=== PATIENT | female | born 1930 | race Caucasian/White ===

== ENCOUNTER → 2016-05-21 | Outpatient (CLI) | payer MEDICARE, BC ==
[2016-05-21 09:57] LABS: ALKALINE PHOSPHATASE 58 U/L (45-117); ALT (GPT) 19 U/L (10-53); ANION GAP 9 MEQ/L (5-15); AST (GOT) 19 U/L (15-37); BICARBONATE 30.5 MEQ/L (21.0-32.0); BLOOD UREA NITROGEN 22 MG/DL (7-18); CHLORIDE 97 MEQ/L (98-107); GLOMERULAR FILTRATION RATE 61 ML/MIN (>89); GLUCOSE,FASTING 97 MG/DL (74-99); HDL CHOLESTEROL 77.6 MG/DL (40.0-60.0); LDL CHOLESTEROL 96 MG/DL (0-99); SODIUM (NA) 136 MEQ/L (136-145); TOTAL BILIRUBIN ADULT 0.7 MG/DL (0.2-1.0)
== END ==
LOC: PLAB 07:14
PROVIDERS: ATTEND Family Medicine
DX: E78.5 Hyperlipidemia, unspecified (principal); R73.01 Impaired fasting glucose; I10 Essential (primary) hypertension
CPT/HCPCS: 36415; 80053; 80061

== ENCOUNTER → 2016-11-26 | Outpatient (CLI) | payer MEDICARE, BC ==
[2016-11-26 09:48] LABS: ANION GAP 9 MEQ/L (5-15); AST (GOT) 18 U/L (15-37); BICARBONATE 28.8 MEQ/L (21.0-32.0); BLOOD UREA NITROGEN 14 MG/DL (7-18); CHLORIDE 97 MEQ/L (98-107); GLOMERULAR FILTRATION RATE 76 ML/MIN (>89); GLUCOSE,FASTING 97 MG/DL (74-99); POTASSIUM 3.4 MEQ/L (3.5-5.1); SODIUM (NA) 135 MEQ/L (136-145)
[2016-11-26 09:55] LABS: ALKALINE PHOSPHATASE 58 U/L (45-117); ALT (GPT) 24 U/L (10-53); HDL CHOLESTEROL 74.3 MG/DL (40.0-60.0); LDL CHOLESTEROL 108 MG/DL (0-99); TOTAL BILIRUBIN ADULT 0.6 MG/DL (0.2-1.0)
== END ==
LOC: PLAB 07:48
PROVIDERS: ATTEND Family Medicine
DX: E78.5 Hyperlipidemia, unspecified (principal); I11.9 Hypertensive heart disease without heart failure
CPT/HCPCS: 36415; 80053; 80061

== ENCOUNTER → 2017-02-21 | Outpatient (CLI) | payer MEDICARE, BC ==
[2017-02-21 10:15] LABS: BICARBONATE 30.2 MEQ/L (21.0-32.0); POTASSIUM 3.8 MEQ/L (3.5-5.1)
[2017-02-21 10:17] LABS: INDIRECT BILIRUBIN 0.5 MG/DL (0.0-0.8); TOTAL BILIRUBIN ADULT 0.7 MG/DL (0.2-1.0)
== END ==
LOC: PLAB 07:17
PROVIDERS: ATTEND Family Medicine
DX: R14.2 Eructation (principal)
CPT/HCPCS: 36415; 80048; 80076

== ENCOUNTER 2017-06-17 10:18 | Inpatient (IN) | payer MEDICARE, BC ==
[~2017-06-17] VITALS: Ht 147.3 cm; Wt 72.4 kg
[2017-06-17] VITALS (8 sets, daily range): BP systolic 136–161; BP diastolic 60–71; PULSE 66–77; RESP 16–20; TEMP 96.6–97.8; O2SAT 95–99
[2017-06-17] MEDS ORDERED: EZET10 PO (10:47)
[2017-06-17] MEDS ORDERED: OMEP20TA93 PO (10:47)
[2017-06-17] MEDS ORDERED: LISI10TA3 PO (10:47)
[2017-06-17] MEDS ORDERED: SODIUM CHLORIDE 0.9% FLUSH 10 ML FLUSH IV FLUSH PRN (11:15)
[2017-06-17] MEDS ORDERED: SODIUM CHLORID 0.9% 500 ML INJ 500 ML IV ONE (11:15)
[2017-06-17 11:27] LABS: AUTOMATED NEUTROPHIL # 3.9 TH/MM3 (1.8-7.7); BASOPHIL # 0.1 TH/MM3 (0-0.2); BASOPHIL % 1.7 % (0.0-2.0); EOSINOPHIL % 0.5 % (0.0-4.0); HEMATOCRIT 32.6 % (35.0-46.0); LYMPH % 20.2 % (9.0-44.0); LYMPHOCYTE # 1.1 TH/MM3 (1.0-4.8); MEAN CELL VOLUME 88.3 FL (80.0-100.0); MEAN CORPUSCULAR HEMOGLOBIN 29.7 PG (27.0-34.0); MEAN CORPUSCULAR HGB CONC 33.7 % (32.0-36.0); MEAN PLATELET VOLUME 7.1 FL (7.0-11.0); MONO % 9.8 % (0.0-8.0); MONOCYTE # 0.6 TH/MM3 (0-0.9); NEUT % 67.8 % (16.0-70.0); PLATELET COUNT 225 TH/MM3 (150-450); RED CELL DISTRIBUTION WIDTH 12.4 % (11.6-17.2); WHITE BLOOD COUNT 5.7 TH/MM3 (4.0-11.0)
[2017-06-17 11:28] LABS: BILIRUBIN, URINE NEG (NEG); BLOOD, URINE NEG (NEG); GLUCOSE,URINE NEG (NEG); KETONE, URINE NEG (NEG); NITRITE,URINE NEG (NEG); URINE LEUKOCYTE ESTERASE NEG (NEG)
[2017-06-17 11:33] LABS: URINE COLOR YELLOW (YELLW/STRAW)
[2017-06-17 11:34] LABS: SQUAMOUS EPITHELIAL CELL URINE > 8 /hpf (0-5)
[2017-06-17 11:35] LABS: AMORPHOUS SEDIMENT, URINE MOD; TRANSITIONAL EPI CELLS, URINE 0-5 /hpf
--- NOTE | 2017-06-17 11:42 | PD ---
HPI Chief Complaint: Dizziness Time Seen by Provider: 11:07 Travel History International Travel<30 days: No Contact w/Intl Traveler<30days: No Traveled to known affect area: No History of Present Illness HPI Patient is an 86-year-old female presents emergency department for evaluation of some nausea without vomiting diarrhea for the past few days gradually worsening. Patient states she thought she had a urinary tract infection and had some Cipro left over from an old urinary tract infection and took some home , afterwards she started having diarrhea. She told her primary care physician about this and she had stool studies ordered as an outpatient which she has not given yet, she came here today because her daughter thinks that she is getting fairly dehydrated and wanted her to have some blood work. Patient states that she has a history of some GI problems and esophageal dilation and her installations inspector also wants to find out if she has proper absorption in her GI tract and is ordered the test which they cannot expound on further. She states her diarrhea is brown, no blood no blackness and no mucus. She states that yesterday she felt somewhat weak and lowered herself to the ground. No tremors no seizure activity. She is not taking any Lasix or hydrochlorothiazide. States symptoms are moderate, gradually worsening, associated sinus symptoms and contacts as above. PFSH Past Medical History Cardiovascular Problems: Yes (htn on meds) High Cholesterol: Yes GERD: Yes Hypertension: Yes ?: Not Past Surgical History Cholecystectomy: Yes Genitourinary Surgery: Yes (bladder sling/mesh) Hysterectomy: Yes (partial) Social History Alcohol Use: No Tobacco Use: No Substance Use: No Allergies-Medications (Allergen,Severity, Reaction): Coded Allergies: No Known Allergies (Unverified , 06/17/17) Reported Meds & Prescriptions Reported Meds & Active Scripts Active Reported Zetia (Ezetimibe) 10 Mg Tab 10 Mg PO DAILY Lisinopril 10 Mg Tab 10 Mg PO DAILY Omeprazole 20 Mg Tab 20 Mg PO DAILY Review of Systems Except as stated in HPI: all other systems reviewed are Neg Physical Exam Narrative GENERAL: Well-developed well-nourished, healthy appearance, quite pleasant in no obvious distress peer SKIN: Focused skin assessment warm/dry. HEAD: Atraumatic. Normocephalic. EYES: Pupils equal and round. No scleral icterus. No injection or drainage. ENT: No nasal bleeding or discharge. Mucous membranes pink and moist. NECK: Trachea midline. No JVD. CARDIOVASCULAR: Regular rate and rhythm. No murmur appreciated. RESPIRATORY: No accessory muscle use. Clear to auscultation. Breath sounds equal bilaterally. GASTROINTESTINAL: Abdomen soft, non-tender, nondistended. Hepatic and splenic margins not palpable. There is perhaps a small amount of suprapubic fullness, no discrete masses felt. No rebound or percussive tenderness MUSCULOSKELETAL: No obvious deformities. No clubbing. No cyanosis. No edema. NEUROLOGICAL: Awake and alert. Cranial nerves II through XII grossly intact and nonfocal, 5 out of 5 strength in all 4 extremities, no tremors, no seizure activity PSYCHIATRIC: Appropriate mood and affect; insight and judgment normal. Data Data Last Documented VS Vital Signs Date Time Temp Pulse Resp B/P (MAP) Pulse Ox O2 Delivery O2 Flow Rate FiO2 06/17/17 13:01 75 16 145/60 (88) 98 Room Air 06/17/17 10:25 97.4 Orders Orders Complete Blood Count With Diff (06/17/17 11:07) Comprehensive Metabolic Panel (06/17/17 11:07) Lipase (06/17/17 11:07) Urinalysis - C+S If Indicated (06/17/17 11:07) Iv Access Insert/Monitor (06/17/17 11:07) Ecg Monitoring (06/17/17 11:07) Oximetry (06/17/17 11:07) Sodium Chloride 0.9% Flush (Ns Flush) (06/17/17 11:15) C Diff Toxin Pcr (06/17/17 11:07) Sodium Chlorid 0.9% 500 Ml Inj (Ns 500 M (06/17/17 11:15) Chest, Single Ap (06/17/17 ) Ct Abd/Pel W/O Iv Contrast (06/17/17 ) Electrocardiogram (06/17/17 ) Troponin I (06/17/17 11:29) Admit Order (Ed Use Only) (06/17/17 ) Labs Laboratory Tests Test 06/17/17 11:18 White Blood Count 5.7 TH/MM3 Red Blood Count 3.70 MIL/MM3 Hemoglobin 11.0 GM/DL Hematocrit 32.6 % Mean Corpuscular Volume 88.3 FL Mean Corpuscular Hemoglobin 29.7 PG Mean Corpuscular Hemoglobin Concent 33.7 % Red Cell Distribution Width 12.4 % Platelet Count 225 TH/MM3 Mean Platelet Volume 7.1 FL Neutrophils (%) (Auto) 67.8 % Lymphocytes (%) (Auto) 20.2 % Monocytes (%) (Auto) 9.8 % Eosinophils (%) (Auto) 0.5 % Basophils (%) (Auto) 1.7 % Neutrophils # (Auto) 3.9 TH/MM3 Lymphocytes # (Auto) 1.1 TH/MM3 Monocytes # (Auto) 0.6 TH/MM3 Eosinophils # (Auto) 0.0 TH/MM3 Basophils # (Auto) 0.1 TH/MM3 CBC Comment DIFF FINAL Differential Comment Urine Collection Type CLEAN CATCH Urine Color YELLOW Urine Turbidity H Urine pH 6.0 Urine Specific [place] 1.008 Urine Protein NEG mg/dL Urine Glucose (UA) NEG mg/dL Urine Ketones NEG mg/dL Urine Occult Blood NEG Urine Nitrite NEG Urine Bilirubin NEG Urine Leukocyte Esterase NEG Urine Squamous Epithelial Cells > 8 /hpf Urine Transitional Epithelial Cells 0-5 /hpf Urine Amorphous Sediment MOD Microscopic Urinalysis Comment CULT NOT INDICATED Blood Urea Nitrogen 12 MG/DL Creatinine 0.88 MG/DL Random Glucose 102 MG/DL Total Protein 6.8 GM/DL Albumin 3.4 GM/DL Calcium Level 8.5 MG/DL Alkaline Phosphatase 64 U/L Aspartate Amino Transf (AST/SGOT) 45 U/L Alanine Aminotransferase (ALT/SGPT) 26 U/L Total Bilirubin 0.9 MG/DL Sodium Level 120 MEQ/L Potassium Level 3.8 MEQ/L Chloride Level 83 MEQ/L Carbon Dioxide Level 27.7 MEQ/L Anion Gap 9 MEQ/L Estimat Glomerular Filtration Rate 61 ML/MIN Troponin I LESS THAN 0.02 NG/ML Lipase 101 U/L [facility] Medical Decision Making Medical Screen Exam Complete: Yes Emergency Medical Condition: Yes Differential Diagnosis Dehydration, diarrhea, C. difficile, urinary tract infection, acute abdomen unlikely, electrolyte abnormality Narrative Course Patient room to the emergency department t, she appears well in no obvious distress, her lab work was significant for hyponatremia with a sodium of 120 which I think would explain her generalized weakness, likely source of her hyponatremia is hypovolemia secondary to diarrhea, she was started slowly on resuscitation with normal saline 500 cc bolus, she appears comfortable, CT of her abdomen was obtained secondary to the suprapubic fullness and shows no acute abnormality, chest x-ray negative, discuss results with the patient with recommendations for admission secondary to hyponatremia and weakness, she is agreeable. Patient was discussed with Dr. Corbin for admission. Patient does not have urinary tract infection, C. difficile study has been ordered and the patient think she can give a sample now. Diagnosis Primary Impression: Hyponatremia Additional Impressions: Generalized weakness Diarrhea Admitting Information Admitting Physician Requests: Admit Condition: Stable Edward Leyva MD Jun 17, 2017 11:42
[2017-06-17 11:56] LABS: ALBUMIN 3.4 GM/DL (3.4-5.0); ALT (GPT) 26 U/L (10-53); AST (GOT) 45 U/L (15-37); BICARBONATE 27.7 MEQ/L (21.0-32.0); BLOOD UREA NITROGEN 12 MG/DL (7-18); CALCIUM 8.5 MG/DL (8.5-10.1); CHLORIDE 83 MEQ/L (98-107); GLUCOSE,RANDOM 102 MG/DL (74-106)
[2017-06-17 11:57] LABS: CREATININE 0.88 MG/DL (0.50-1.00); GLOMERULAR FILTRATION RATE 61 ML/MIN (>89)
--- NOTE | 2017-06-17 12:09 | RADRPT ---
EXAM DATE/TIME: 06/17/2017 11:30 [facility] COMPARISON: No previous studies available for comparison. INDICATIONS : Short of breath, epigastric pain. MEDICAL HISTORY : Hypertension. Hypercholesterolemia. Gastroesophageal reflux disease. SURGICAL HISTORY : Cholecystectomy. Hysterectomy. Bladder sling. ENCOUNTER: Initial ACUITY: 1 day PAIN SCORE: 6/10 LOCATION: chest FINDINGS: A single view of the chest demonstrates the lungs to be symmetrically aerated without evidence of mas s, infiltrate or effusion. The cardiomediastinal contours are unremarkable. Degenerative changes and scoliosis of the thoraco-lumbar spine are noted. CONCLUSION: No acute cardiopulmonary disease. Degenerative changes and scoliosis of the thoracolu mbar spine. Edward Allen MD on June 17, 2017 at 12:06 Board Certified Radiologist. This report was verified electronically.
[2017-06-17 12:10] LABS: SODIUM (NA) 120 MEQ/L (136-145)
[2017-06-17 12:11] LABS: ALKALINE PHOSPHATASE 64 U/L (45-117); TOTAL BILIRUBIN ADULT 0.9 MG/DL (0.2-1.0); TOTAL PROTEIN 6.8 GM/DL (6.4-8.2)
--- NOTE | 2017-06-17 12:30 | RADRPT ---
EXAM DATE/TIME: 06/17/2017 11:40 [facility] COMPARISON: No previous studies available for comparison. INDICATIONS : Lower abdominal pressure, diarrhea and dizziness. ORAL CONTRAST: No oral contrast ingested. RADIATION DOSE: 9.73 CTDIvol (mGy) MEDICAL HISTORY : Hypertension. Gastroesophageal reflux disease. SURGICAL HISTORY : Cholecystectomy. Hysterectomy.Bladder sling. ENCOUNTER: Initial ACUITY: 4 - 6 days PAIN SCALE: 2/10 LOCATION: Bilateral lower quadrant TECHNIQUE: Volumetric scanning of the abdomen and pelvis was performed. Using automated exposure control and ad justment of the mA and/or kV according to patient size, radiation dose was kept as low as reasonably achievable to obtain optimal diagnostic quality images. DICOM format image data is available electro nically for review and comparison. FINDINGS: The lung base is are clear. The liver, spleen unremarkable Calcification mid body the pancreas without mass or evidence of pancreatitis Common duct 8 mm in the head of the pancreas Ligament appear normal There no renal calculi identified There is no adenopathy There is no free fluid or free air The pelvis there are no inflammatory changes. There is no inguinal adenopathy. There is no hernia. CONCLUSION: Negative, I do not see an etiology for the patient's abdominal pain. . Common duct measures 8 mm in the pancreas. Gallbladder surgically absent. Nadeem Pabon MD FACR on June 17, 2017 at 11:47 Board Certified Radiologist. This report was verified electronically.
--- NOTE | 2017-06-17 15:32 | HHI.HP ---
[facility] Jovan Sierra MD Admission Diagnosis Hyponatremia, Generalized weakness, Diarrhea Diagnoses: (1) Hyponatremia (2) Diarrhea (3) Generalized weakness Chief Complaint: Fatigue Travel History International Travel<30 Days: No Contact w/Intl Traveler <30 Da: No Traveled to Known Affected Are: No History of Present Illness This is an 86-year-old female patient with a known medical history of hyperlipidemia, hypertension and GERD who presented to the ED with several weeks of fatigue. Patient states that on Tuesday she went to her doctor and was prescribed ciprofloxacin for bladder infection and after three days of taking the antibiotic she developed diarrhea. Patient states that she had roughly 3 bouts of diarrhea and then it resolved. Today she was standing in the kitchen against the sink and all of a sudden her legs gave out on her and she fell to the ground. Denies hitting her head or losing consciousness. Patient states at that time she called her son who came to her home and brought her into her PCP this morning who told her to come to the ED for evaluation. Patient denies any recent fever, chills, headache, sore throat, shortness of breath, abdominal pain, vomiting or dysuria. Does admit to poor appetite. Diarrhea has resolved. Review of Systems Constitutional: COMPLAINS OF: Fatigue, DENIES: Fever Eyes: DENIES: Blurred vision, Diplopia Respiratory: DENIES: Cough, Sputum production, Shortness of breath Cardiovascular: DENIES: Chest pain, Palpitations Gastrointestinal: COMPLAINS OF: Diarrhea, Nausea, Vomiting, DENIES: Abdominal pain, Black stools, Bloody stools, Constipation Integumentary: DENIES: Abnormal pigmentation Hematologic/lymphatic: DENIES: Bruising Immunologic/allergic: DENIES: Eczema Neurologic: COMPLAINS OF: Localized weakness, DENIES: Abnormal gait Psychiatric: DENIES: Anxiety Except as stated in HPI: all other systems reviewed are Neg Past Family Social History Past Medical History Hyperlipidemia Hypertension GERD Past Surgical History Cholecystectomy Bladder sling/mesh placement Partial hysterectomy Right knee replacement Reported Medications Active Reported Zetia (Ezetimibe) 10 Mg Tab 10 Mg PO DAILY Lisinopril 10 Mg Tab 10 Mg PO DAILY Omeprazole 20 Mg Tab 20 Mg PO DAILY Allergies: Coded Allergies: No Known Allergies (Unverified , 06/17/17) Active Ordered Medications Current Medications Medications (Trade) Dose Ordered Sig/Heron Route Start Time Stop Time Status Last Admin (NS Flush) 2 ml UNSCH PRN IV FLUSH 06/17/17 11:15 (Zetia) 10 mg DAILY PO 06/18/17 09:00 (Prinivil) 10 mg DAILY PO 06/18/17 09:00 (Protonix) 20 mg DAILY PO 06/18/17 09:00 Family History Family history reviewed and noncontributory. Social History Denies any illicit drug use, alcohol or tobacco use. Physical Exam Vital Signs Vital Signs Date Time Temp Pulse Resp B/P (MAP) Pulse Ox O2 Delivery O2 Flow Rate FiO2 06/17/17 14:10 96.6 70 17 136/63 (87) 99 06/17/17 14:05 06/17/17 13:01 75 16 145/60 (88) 98 Room Air 06/17/17 11:59 66 20 141/64 (89) 97 Room Air 06/17/17 11:25 99 Room Air 06/17/17 10:25 97.4 73 16 161/71 (101) 96 Physical Exam GENERAL: Well-nourished, well-developed patient in NAD. SKIN: Warm and dry. No rash. HEAD: Normocephalic. Atraumatic. EYES: Pupils equal and round. No scleral icterus. No injection or drainage. ENT: No nasal bleeding or discharge. Mucous membranes pink and moist. NECK: Supple. Trachea midline. CARDIOVASCULAR: Regular rate and rhythm. S1, S2 noted. No murmur appreciated. RESPIRATORY: No accessory muscle use. Clear to auscultation. Breath sounds equal bilaterally. GASTROINTESTINAL: Abdomen soft, non-tender, nondistended. Normoactive bowel sounds x4. MUSCULOSKELETAL: No obvious deformities. Extremities without clubbing, cyanosis , or edema. NEUROLOGICAL: Awake and alert. No obvious cranial nerve deficits. Motor grossly within normal limits. 5/5 muscle strength in bilateral upper and lower extremities. Normal speech. PSYCHIATRIC: Appropriate mood and affect; insight and judgment normal. Laboratory Laboratory Tests Test 06/17/17 11:18 White Blood Count 5.7 Red Blood Count 3.70 Hemoglobin 11.0 Hematocrit 32.6 Mean Corpuscular Volume 88.3 Mean Corpuscular Hemoglobin 29.7 Mean Corpuscular Hemoglobin Concent 33.7 Red Cell Distribution Width 12.4 Platelet Count 225 Mean Platelet Volume 7.1 Neutrophils (%) (Auto) 67.8 Lymphocytes (%) (Auto) 20.2 Monocytes (%) (Auto) 9.8 Eosinophils (%) (Auto) 0.5 Basophils (%) (Auto) 1.7 Neutrophils # (Auto) 3.9 Lymphocytes # (Auto) 1.1 Monocytes # (Auto) 0.6 Eosinophils # (Auto) 0.0 Basophils # (Auto) 0.1 CBC Comment DIFF FINAL Differential Comment Urine Collection Type CLEAN CATCH Urine Color YELLOW Urine Turbidity H Urine pH 6.0 Urine Specific [place] 1.008 Urine Protein NEG Urine Glucose (UA) NEG Urine Ketones NEG Urine Occult Blood NEG Urine Nitrite NEG Urine Bilirubin NEG Urine Leukocyte Esterase NEG Urine Squamous Epithelial Cells > 8 Urine Transitional Epithelial Cells 0-5 Urine Amorphous Sediment MOD Microscopic Urinalysis Comment CULT NOT INDICATED Blood Urea Nitrogen 12 Creatinine 0.88 Random Glucose 102 Total Protein 6.8 Albumin 3.4 Calcium Level 8.5 Alkaline Phosphatase 64 Aspartate Amino Transf (AST/SGOT) 45 Alanine Aminotransferase (ALT/SGPT) 26 Total Bilirubin 0.9 Sodium Level 120 Potassium Level 3.8 Chloride Level 83 Carbon Dioxide Level 27.7 Anion Gap 9 Estimat Glomerular Filtration Rate 61 Troponin I LESS THAN 0.02 Lipase 101 Result Diagram: 06/17/17 1118 06/17/17 1118 Imaging Last Impressions Chest X-Ray 06/17/17 0000 Signed Impressions: Service Date/Time: Saturday, June 17, 2017 11:30 - CONCLUSION: No acute cardiopulmonary disease. Degenerative changes and scoliosis of the thoracolumbar spine. Edward Allen MD Abdomen/Pelvis CT 06/17/17 0000 Signed Impressions: Service Date/Time: Saturday, June 17, 2017 11:40 - CONCLUSION: Negative, I do not see an etiology for the patient's abdominal pain. . Common duct measures 8 mm in the pancreas. Gallbladder surgically absent. Nadeem Pabon MD FACR Septic Shock Reassessment Septic shock perfusion: reassessment completed Caprini VTE Risk Assessment Caprini VTE Risk Assessment: Mod/High Risk (score >= 2) Caprini Risk Assessment Model Point Value = 1 Point Value = 2 Point Value = 3 Point Value = 5 Age 41-60 Minor surgery BMI > 25 kg/m2 Swollen legs Varicose veins or History of unexplained or recurrent spontaneous Oral contraceptives or hormone replacement Sepsis (< 1 month) Serious lung disease, including pneumonia (< 1 month) Abnormal pulmonary function Acute myocardial infarction Congestive heart failure (< 1 month) History of inflammatory bowel disease Medical patient at bed rest Age 61-74 Arthroscopic surgery Major open surgery (> 45 min) Laparoscopic surgery (> 45 min) Malignancy Confined to bed (> 72 hours) Immobilizing plaster cast Central venous access Age >= 75 History of VTE Family history of VTE Factor V Leiden Prothrombin [id number] Lupus anticoagulant Anticardiolipin antibodies Elevated serum homocysteine Heparin-induced thrombocytopenia Other congenital or acquired thrombophilia Stroke (< 1 month) Elective arthroplasty Hip, pelvis, or leg fracture Acute spinal cord injury (< 1 month) Prophylaxis Regimen Total Risk Factor Score Risk Level Prophylaxis Regimen 0-1 Low Early ambulation 2 Moderate Order ONE of the following: *Sequential Compression Device (SCD) *Heparin 5000 units SQ BID 3-4 Higher Order ONE of the following medications: *Heparin 5000 units SQ TID *Enoxaparin/Lovenox 40 mg SQ daily (WT < 150 kg, CrCl > 30 mL/min) *Enoxaparin/Lovenox 30 mg SQ daily (WT < 150 kg, CrCl > 10-29 mL/min) *Enoxaparin/Lovenox 30 mg SQ BID (WT < 150 kg, CrCl > 30 mL/min) AND/OR *Sequential Compression Device (SCD) 5 or more Highest Order ONE of the following medications: *Heparin 5000 units SQ TID (Preferred with Epidurals) *Enoxaparin/Lovenox 40 mg SQ daily (WT < 150 kg, CrCl > 30 mL/min) *Enoxaparin/Lovenox 30 mg SQ daily (WT < 150 kg, CrCl > 10-29 mL/min) *Enoxaparin/Lovenox 30 mg SQ BID (WT < 150 kg, CrCl > 30 mL/min) AND *Sequential Compression Device (SCD) Assessment and Plan Problem List: (1) Hyponatremia ICD Code: E87.1 - Hypo-osmolality and hyponatremia Status: Acute Plan: Suspect secondary to diarrhea - With presence of weakness and fatigue. Na 120 on presentation. Chest x-ray reviewed showing no acute cardiopulmonary disease. Degenerative changes and scoliosis of the thoracolumbar spine. Abdominal/pelvis CT negative. C. difficile ordered for recent antibiotic use. Although diarrhea has resolved per patient. Follow. Status post 1 L NS bolus in the ED. Will start fluid restriction. Urine osmolality and 24-hour sodium ordered. Follow. The reviewed showing normal sinus rhythm with controlled heart rate, no ST changes to indicate ischemia. Continue cardiac telemetry, monitor for any arrhythmias. (2) Hypertension ICD Code: I10 - Essential (primary) hypertension Plan: Continue home medication. Monitor BP trends. (3) Hyperlipidemia ICD Code: E78.5 - Hyperlipidemia, unspecified Plan: Continue home medication. Physician Certification 2 Midnight Certification Type: Admission for Inpatient Services Order for Inpatient Services The services are ordered in accordance with Medicare regulations or non- Medicare payer requirements, as applicable. In the case of services not specified as inpatient-only, they are appropriately provided as inpatient services in accordance with the 2-midnight benchmark. Estimated LOS (days): 3 3 days is the estimated time the patient will need to remain in the hospital, assuming treatment plan goals are met and no additional complications. Post-Hospital Plan: Home Kayla Horton Jun 17, 2017 15:32
[2017-06-17 21:52] LABS: OSMOLALITY,URINE 164 MOSM/KG (300-1300)
[2017-06-17 22:32] LABS: SODIUM,RANDOM URINE 44 MEQ/L
[2017-06-18] VITALS (7 sets, daily range): BP systolic 111–136; BP diastolic 56–62; PULSE 63–71; RESP 16–20; TEMP 96–98.7; O2SAT 96–99
[2017-06-18 07:52] LABS: AUTOMATED NEUTROPHIL # 2.9 TH/MM3 (1.8-7.7); BASOPHIL % 0.6 % (0.0-2.0); CALCIUM 8.2 MG/DL (8.5-10.1); EOSINOPHIL # 0.1 TH/MM3 (0-0.4); HEMATOCRIT 31.6 % (35.0-46.0); HEMOGLOBIN 10.4 GM/DL (11.6-15.3); LYMPH % 27.4 % (9.0-44.0); LYMPHOCYTE # 1.4 TH/MM3 (1.0-4.8); MEAN CELL VOLUME 89.6 FL (80.0-100.0); MEAN CORPUSCULAR HEMOGLOBIN 29.6 PG (27.0-34.0); MEAN PLATELET VOLUME 7.8 FL (7.0-11.0); MONO % 13.4 % (0.0-8.0); MONOCYTE # 0.7 TH/MM3 (0-0.9); NEUT % 56.6 % (16.0-70.0); PLATELET COUNT 205 TH/MM3 (150-450); RED BLOOD COUNT 3.53 MIL/MM3 (4.00-5.30); RED CELL DISTRIBUTION WIDTH 12.7 % (11.6-17.2); WHITE BLOOD COUNT 5.1 TH/MM3 (4.0-11.0)
[2017-06-18 07:53] LABS: BICARBONATE 29.5 MEQ/L (21.0-32.0)
[2017-06-18 07:56] LABS: CREATININE 0.69 MG/DL (0.50-1.00)
[2017-06-18] MEDS ORDERED: POTASSIUM CHLORIDE 10 MEQ CONTROLLED RELEASE TAB PO ONE (08:00)
[2017-06-18] MEDS: LISINOPRIL 10 MG TAB PO SCH (08:47)
[2017-06-18] MEDS: PANTOPRAZOLE SOD 20 MG DELAYED RELEASE TAB PO SCH (08:47)
[2017-06-18] MEDS: EZETIMIBE 10 MG TAB PO SCH (08:48)
[2017-06-18] MEDS ORDERED: SODIUM CHLORID 0.9% 500 ML INJ 500 ML IV ONE (09:00)
--- NOTE | 2017-06-18 11:02 | HHI.PR ---
Subjective Remarks Follow-up hyponatremia. Patient seen and examined, lying in bed comfortably. States she slept well. Denies any nausea or vomiting. Tolerating PO intake well. Has been ambulating to the bathroom with no dizziness or weakness. Sodium has improved slightly with fluid restriction. Patient does still seem to be mildly dehydrated, will give small slow IV bolus today. Continue to monitor response. Follow-up Labs this afternoon. Objective Vitals Vital Signs Date Time Temp Pulse Resp B/P (MAP) Pulse Ox O2 Delivery O2 Flow Rate FiO2 06/18/17 08:00 96.9 63 20 119/58 (78) 98 06/18/17 04:00 96.5 66 18 117/57 (77) 96 06/18/17 00:34 97.8 70 16 136/60 (85) 96 06/17/17 22:18 77 06/17/17 20:00 97.8 72 18 138/66 (90) 95 06/17/17 16:20 18 06/17/17 14:10 96.6 70 17 136/63 (87) 99 06/17/17 14:05 06/17/17 13:01 75 16 145/60 (88) 98 Room Air 06/17/17 11:59 66 20 141/64 (89) 97 Room Air 06/17/17 11:25 99 Room Air I/O 06/17/17 06/17/17 06/17/17 06/18/17 06/18/17 06/18/17 07:00 15:00 23:00 07:00 15:00 23:00 Intake Total 500 ml 240 ml 340 ml Output Total 450 ml Balance 500 ml 240 ml -110 ml Intake Oral 240 ml 340 ml IV Total 500 ml Output Urine Total 450 ml # Voids 1 0 Result Diagram: 06/18/17 0625 06/18/17 0625 Imaging Last Impressions Chest X-Ray 06/17/17 0000 Signed Impressions: Service Date/Time: Saturday, June 17, 2017 11:30 - CONCLUSION: No acute cardiopulmonary disease. Degenerative changes and scoliosis of the thoracolumbar spine. Edward Allen MD Abdomen/Pelvis CT 06/17/17 0000 Signed Impressions: Service Date/Time: Saturday, June 17, 2017 11:40 - CONCLUSION: Negative, I do not see an etiology for the patient's abdominal pain. . Common duct measures 8 mm in the pancreas. Gallbladder surgically absent. Nadeem Pabon MD FACR Objective Remarks GENERAL: Well-nourished, well-developed patient in NAD. SKIN: Warm and dry. No rash. HEAD: Normocephalic. Atraumatic. EYES: Pupils equal and round. No scleral icterus. No injection or drainage. ENT: No nasal bleeding or discharge. Mucous membranes pink and moist. NECK: Supple. Trachea midline. CARDIOVASCULAR: Regular rate and rhythm. S1, S2 noted. No murmur appreciated. RESPIRATORY: No accessory muscle use. Clear to auscultation. Breath sounds equal bilaterally. GASTROINTESTINAL: Abdomen soft, non-tender, nondistended. Normoactive bowel sounds x4. MUSCULOSKELETAL: No obvious deformities. Extremities without clubbing, cyanosis , or edema. NEUROLOGICAL: Awake and alert. No obvious cranial nerve deficits. Motor grossly within normal limits. 5/5 muscle strength in bilateral upper and lower extremities. Normal speech. PSYCHIATRIC: Appropriate mood and affect; insight and judgment normal. A/P Problem List: (1) Hyponatremia ICD Code: E87.1 - Hypo-osmolality and hyponatremia Status: Acute Plan: Suspect secondary to diarrhea - With presence of weakness and fatigue. Diarrhea resolved. Na 120 on presentation. Now 125. Chest x-ray reviewed showing no acute cardiopulmonary disease. Degenerative changes and scoliosis of the thoracolumbar spine. Abdominal/pelvis CT negative. C. difficile pending. Status post five hundred mL NS bolus in the ED. Will give an additional 500 ml bolus today. Recheck labs at 1500 today. Follow. Urine osmolality 164, random urine sodium 44. The reviewed showing normal sinus rhythm with controlled heart rate, no ST changes to indicate ischemia. Continue cardiac telemetry, monitor for any arrhythmias. (2) Hypertension ICD Code: I10 - Essential (primary) hypertension Plan: Continue home medication. Monitor BP trends. (3) Hyperlipidemia ICD Code: E78.5 - Hyperlipidemia, unspecified Plan: Continue home medication. GI prophylaxis: Protonix. DVT prophylaxis: SCDs. Discharge Planning Also discharge today if labs are stable. Most likely tomorrow morning. Kayla Horton Jun 18, 2017 11:02
[2017-06-18 15:43] LABS: CALCIUM 8.6 MG/DL (8.5-10.1)
[2017-06-18 15:44] LABS: BICARBONATE 29.9 MEQ/L (21.0-32.0)
[2017-06-18] MEDS: SODIUM CHLORIDE 1 GRAM TAB PO SCH (21:34)
[2017-06-18 22:20] LABS: CREATININE 0.89 MG/DL (0.50-1.00)
[2017-06-19 00:05] VITALS: BP 106/50; PULSE 72; RESP 16; TEMP 98; O2SAT 97
--- NOTE | 2017-06-19 00:23 | EKG ---
Date Performed: 06/17/2017 Time Performed: 11:56:09 PTAGE: 86 years EKG: Sinus rhythm MODERATE ST DEPRESSION ABNORMAL ECG PREVIOUS TRACING : 03/13/2001 08.59 Compared to prior tracing, ST depressions now noted DOCTOR: Joaquin Vera Interpretating Date/Time 06/19/2017 00:23:03
[2017-06-19 04:59] VITALS: BP 110/63; PULSE 79; RESP 18; TEMP 97.8; O2SAT 98
[2017-06-19 08:00] VITALS: BP 140/65; PULSE 69; RESP 20; TEMP 97.1; O2SAT 97
[2017-06-19] MEDS: SODIUM CHLORIDE 1 GRAM TAB PO SCH (08:22)
[2017-06-19] MEDS: LISINOPRIL 10 MG TAB PO SCH (08:23)
[2017-06-19] MEDS: PANTOPRAZOLE SOD 20 MG DELAYED RELEASE TAB PO SCH (08:23)
[2017-06-19] MEDS: EZETIMIBE 10 MG TAB PO SCH (08:23)
[2017-06-19 10:23] LABS: SODIUM 24 HOUR URINE 23 MEQ/24HR (80-180)
[2017-06-19 10:44] LABS: CALCIUM 8.1 MG/DL (8.5-10.1)
[2017-06-19 10:45] LABS: BICARBONATE 26.4 MEQ/L (21.0-32.0)
[2017-06-19 10:48] LABS: CREATININE 0.64 MG/DL (0.50-1.00)
--- NOTE | 2017-06-19 11:15 | HHI.DCPOC ---
Discharge Care Plan Diagnosis: (1) Hyponatremia (2) Generalized weakness (3) Diarrhea (4) Hyperlipidemia (5) Hypertension Goals to Promote Your Health * To prevent worsening of your condition and complications * To maintain your health at the optimal level Directions to Meet Your Goals Take your medications as prescribed Follow your dietary instruction Follow activity as directed Keep your appointments as scheduled Take your immunizations and boosters as scheduled If your symptoms worsen call your PCP, if no PCP go to Urgent Care Center or Emergency Room Smoking is Dangerous to Your Health. Avoid second hand smoke Call the 24-hour hour crisis hotline for domestic abuse at Kayla Horton Jun 19, 2017 11:15
--- NOTE | 2017-06-19 11:15 | HHI.DS ---
Discharge Summary Admission Date Jun 17, 2017 at 13:08 Discharge Date: Jun 19, 2017 Admitting Diagnosis Hyponatremia, Generalized weakness, Diarrhea (1) Hyponatremia ICD Code: E87.1 - Hypo-osmolality and hyponatremia Status: Acute (2) Hypertension ICD Code: I10 - Essential (primary) hypertension (3) Hyperlipidemia ICD Code: E78.5 - Hyperlipidemia, unspecified Procedures . Brief History - From Admission This is an 86-year-old female patient with a known medical history of hyperlipidemia, hypertension and GERD who presented to the ED with several weeks of fatigue. Patient states that on Tuesday she went to her doctor and was prescribed ciprofloxacin for bladder infection and after three days of taking the antibiotic she developed diarrhea. Patient states that she had roughly 3 bouts of diarrhea and then it resolved. Today she was standing in the kitchen against the sink and all of a sudden her legs gave out on her and she fell to the ground. Denies hitting her head or losing consciousness. Patient states at that time she called her son who came to her home and brought her into her PCP this morning who told her to come to the ED for evaluation. Patient denies any recent fever, chills, headache, sore throat, shortness of breath, abdominal pain, vomiting or dysuria. Does admit to poor appetite. Diarrhea has resolved. CBC/BMP: 06/18/17 0625 06/19/17 0610 Significant Findings Laboratory Tests Test 06/17/17 11:18 06/17/17 16:05 06/17/17 18:15 06/18/17 06:25 Red Blood Count 3.70 MIL/MM3 (4.00-5.30) 3.53 MIL/MM3 (4.00-5.30) Hemoglobin 11.0 GM/DL (11.6-15.3) 10.4 GM/DL (11.6-15.3) Hematocrit 32.6 % (35.0-46.0) 31.6 % (35.0-46.0) Monocytes (%) (Auto) 9.8 % (0.0-8.0) 13.4 % (0.0-8.0) Urine Squamous Epithelial Cells > 8 /hpf (0-5) Aspartate Amino Transf (AST/SGOT) 45 U/L (15-37) Sodium Level 120 MEQ/L (136-145) 124 MEQ/L (136-145) 125 MEQ/L (136-145) Chloride Level 83 MEQ/L (98-107) 88 MEQ/L (98-107) Estimat Glomerular Filtration Rate 61 ML/MIN (>89) 81 ML/MIN (>89) Troponin I LESS THAN 0.02 NG/ML Urine Osmolality 164 MOSM/KG (300-1300) Calcium Level 8.2 MG/DL (8.5-10.1) Potassium Level 3.1 MEQ/L (3.5-5.1) Test 06/18/17 09:50 06/18/17 15:00 06/18/17 22:20 06/19/17 06:10 Sodium Level 125 MEQ/L (136-145) 131 MEQ/L (136-145) Chloride Level 88 MEQ/L (98-107) 94 MEQ/L (98-107) Estimat Glomerular Filtration Rate 60 ML/MIN (>89) 88 ML/MIN (>89) Urine Sodium 24 Hour 23 MEQ/24HR (80-180) Calcium Level 8.1 MG/DL (8.5-10.1) Imaging Last Impressions Chest X-Ray 06/17/17 0000 Signed Impressions: Service Date/Time: Saturday, June 17, 2017 11:30 - CONCLUSION: No acute cardiopulmonary disease. Degenerative changes and scoliosis of the thoracolumbar spine. Edward Allen MD Abdomen/Pelvis CT 06/17/17 0000 Signed Impressions: Service Date/Time: Saturday, June 17, 2017 11:40 - CONCLUSION: Negative, I do not see an etiology for the patient's abdominal pain. . Common duct measures 8 mm in the pancreas. Gallbladder surgically absent. Nadeem Pabon MD FACR PE at Discharge GENERAL: Well-nourished, well-developed patient in NAD. SKIN: Warm and dry. No rash. HEAD: Normocephalic. Atraumatic. EYES: Pupils equal and round. No scleral icterus. No injection or drainage. ENT: No nasal bleeding or discharge. Mucous membranes pink and moist. NECK: Supple. Trachea midline. CARDIOVASCULAR: Regular rate and rhythm. S1, S2 noted. No murmur appreciated. RESPIRATORY: No accessory muscle use. Clear to auscultation. Breath sounds equal bilaterally. GASTROINTESTINAL: Abdomen soft, non-tender, nondistended. Normoactive bowel sounds x4. MUSCULOSKELETAL: No obvious deformities. Extremities without clubbing, cyanosis , or edema. NEUROLOGICAL: Awake and alert. No obvious cranial nerve deficits. Motor grossly within normal limits. 5/5 muscle strength in bilateral upper and lower extremities. Normal speech. PSYCHIATRIC: Appropriate mood and affect; insight and judgment normal. Pt update on day of discharge Follow-up hyponatremia. Patient seen and examined, sodium improved today. Patient feeling well improved. Tolerating by mouth intake. Denies any nausea or vomiting. Has been ambulating without dizziness or lightheadedness. No acute events overnight. Spoke to daughter and patient's sister patient at length regarding disease process. Encouraged to follow-up with PCP to evaluate ADH level. Spoke at length about new medications all questions answered to the best of my ability. Vital signs are stable. Hospital Course Patient presented with hyponatremia suspect secondary to diarrhea with presence of weakness and fatigue. Diarrhea resolved upon discharge. Sodium on presentation was 120 and improved to 131. Was given 1 L NS bolus in all during hospitalization as well as placed on sodium tablets, patient responded well to sodium tablets. Continued on DC. Chest x-ray reviewed showing no acute cardiopulmonary disease. Degenerative changes and scoliosis of the thoracolumbar spine. Abdominal/pelvis CT was done and negative. C. difficile ordered and negative. Urine osmolality checked and was 164, random urine sodium was 44. EKG reviewed showing normal sinus rhythm with controlled heart rate, no ST changes to indicate ischemia. No arrhythmias on telemetry. Cortisol level checked and normal. BNP normal. TSH normal. Patient improved on discharge. Encouraged to f/u with PCP to follow reasoning for hyponatremia and further lab work to follow Na. Pt Condition on Discharge: Stable Discharge Disposition: Discharge Home Discharge Time: > 30 minutes Discharge Instructions DIET: Follow Instructions for: As Tolerated, No Restrictions Speech Therapy-Diet Recommends: Regular Additional Diet Instructions: FLUID RESTRICTION 1500 ML per day Activities you can perform: Regular-No Restrictions Follow up Referrals: PCP Follow-up - 1 Week Follow ADH levels New Medications: Sodium Chloride (Sodium Chloride) 1 Gram Tab 2 GM PO BID for Electrolyte Replacement for 30 Days, #30 TAB 0 Refills Continued Medications: Ezetimibe (Zetia) 10 Mg Tab 10 MG PO DAILY, #30 TAB 0 Refills Lisinopril (Lisinopril) 10 Mg Tab 10 MG PO DAILY, #30 TAB 0 Refills Omeprazole (Omeprazole) 20 Mg Tab 20 MG PO DAILY, #30 TAB 0 Refills Kayla Horton Jun 19, 2017 11:15
[2017-06-19] MEDS ORDERED: SODI1TAB PO (11:17)
[2017-06-19] MEDS ORDERED: LISI10TA3 PO (11:19)
[2017-06-19 12:00] VITALS: BP 128/60; PULSE 71; RESP 20; TEMP 98.4; O2SAT 96
[2017-06-19] MEDS ORDERED: MAG-LIQ PO (12:13)
[2017-06-19] MEDS ORDERED: ALUMINUM/MAGNESIUM/SIMETH 30 ML CUP PO ONE (13:00)
== END 2017-06-19 13:51 | disposition home or self-care (01) | DRG 641 ==
LOC: PHED 10:18 → PHEDA 13:08 → PH3B 13:59
PROVIDERS: ADMIT Hospitalist; ATTEND Hospitalist
DX: E87.1 Hypo-osmolality and hyponatremia (principal); E86.0 Dehydration; R63.0 Anorexia; M41.85 Other forms of scoliosis, thoracolumbar region; R19.7 Diarrhea, unspecified; K21.9 Gastro-esophageal reflux disease without esophagitis; I10 Essential (primary) hypertension; E78.5 Hyperlipidemia, unspecified; Z96.651 Presence of right artificial knee joint
CPT/HCPCS: 71045; 74176; 80048; 80053; 81001; 82533; 83690; 83735; 83880; 83935; 84295; 84300; 84443; 84484; 84588; 85025; 87493; 93005; 96360; J7040

== ENCOUNTER 2017-10-03 15:31 | Inpatient (IN) | payer MEDICARE, BC ==
[~2017-10-03] VITALS: Ht 147.3 cm; Wt 65.0 kg
[~2017-10-03 15:31] MED LIST: EZET10 PO; LISI10TA3 PO; MAG-LIQ PO; OMEP20TA93 PO; SODI1TAB PO
[2017-10-03 15:42] VITALS: BP 134/62; PULSE 82; RESP 23; TEMP 97.4; O2SAT 97
[2017-10-03] MEDS ORDERED: SODIUM CHLORIDE 0.9% FLUSH 10 ML FLUSH IVF PRN (15:45)
--- NOTE | 2017-10-03 16:00 | RADRPT ---
EXAM DATE: 10/03/2017 3:57 PM EDT AGE/SEX: 86 years / Female INDICATIONS: Syncope. Patient passed out today. CLINICAL DATA: This is the patient's initial encounter. Patient reports that signs and symptoms have been present for 1 day and indicates a pain score of 0/10. MEDICAL/SURGICAL HISTORY: Hypertension. None. COMPARISON: [facility], CHEST SINGLE AP, 06/17/2017. . FINDINGS: A single AP view of the chest demonstrates the lungs to be symmetrically aerated without evidence of mass, infiltrate or effusion. The cardiomediastinal contours are unremarkable. Osseous structures a re intact. CONCLUSION: Mild basilar atelectasis. No effusion or pneumothorax. Electronically signed by: Jaswant Sierra MD 10/03/2017 3:58 PM EDT
[2017-10-03 16:24] LABS: AUTOMATED NEUTROPHIL # 11.1 TH/MM3 (1.8-7.7); BASOPHIL % 0.2 % (0.0-2.0); EOSINOPHIL % 0.1 % (0.0-4.0); HEMATOCRIT 42.6 % (35.0-46.0); HEMOGLOBIN 14.6 GM/DL (11.6-15.3); LYMPH % 13.8 % (9.0-44.0); LYMPHOCYTE # 1.9 TH/MM3 (1.0-4.8); MEAN CORPUSCULAR HEMOGLOBIN 30.2 PG (27.0-34.0); MEAN CORPUSCULAR HGB CONC 34.4 % (32.0-36.0); MONO % 5.5 % (0.0-8.0); MONOCYTE # 0.8 TH/MM3 (0-0.9); NEUT % 80.4 % (16.0-70.0); PLATELET COUNT 277 TH/MM3 (150-450); RED BLOOD COUNT 4.84 MIL/MM3 (4.00-5.30); RED CELL DISTRIBUTION WIDTH 13.9 % (11.6-17.2); WHITE BLOOD COUNT 13.8 TH/MM3 (4.0-11.0)
[2017-10-03 16:45] LABS: ALBUMIN 3.7 GM/DL (3.4-5.0); AST (GOT) 22 U/L (15-37); BLOOD UREA NITROGEN 15 MG/DL (7-18); CALCIUM 8.9 MG/DL (8.5-10.1); CHLORIDE 94 MEQ/L (98-107); CREATININE 1.05 MG/DL (0.50-1.00); GLOMERULAR FILTRATION RATE 50 ML/MIN (>89); GLUCOSE,RANDOM 140 MG/DL (74-106); SODIUM (NA) 135 MEQ/L (136-145)
[2017-10-03 16:46] LABS: ALT (GPT) 22 U/L (10-53)
[2017-10-03 16:50] LABS: ALKALINE PHOSPHATASE 62 U/L (45-117); TOTAL BILIRUBIN ADULT 0.8 MG/DL (0.2-1.0); TOTAL PROTEIN 6.7 GM/DL (6.4-8.2); TROPONIN I LESS THAN 0.02 NG/ML (0.02-0.05)
--- NOTE | 2017-10-03 17:40 | PD ---
HPI Chief Complaint: Syncope/Near-Syncope Time Seen by Provider: 15:38 Travel History International Travel<30 days: No Contact w/Intl Traveler<30days: No Traveled to known affect area: No History of Present Illness HPI Patient is an 86-year-old female presents emergency department with a history of for syncopal episodes today. Patient states that several these results were observed by her son and he told her that she was unarousable and was drooling, after 2 these episodes she vomited. The patient is being worked up for abdominal cramping nausea and vomiting by Dr. 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 She states that she did have some syncopal episodes in the past which was associated with episodes of diarrhea and was ultimately diagnosed with hyponatremia. She states that currently she feels well, denies any chest pain shortness of breath palpitations cough congestion or headache. She endorses only a mild abdominal cramping. Symptoms started today, intermittent, context and associated signs and symptoms as above per [facility] Past Medical History Arthritis: Yes Cardiovascular Problems: Yes (htn on meds) High Cholesterol: Yes GERD: Yes Genitourinary: No Hypertension: Yes Musculoskeletal: Yes Neurologic: No Reproductive: No Respiratory: No Past Surgical History Abdominal Surgery: Yes (lap aj) Cardiac Surgery: No Cholecystectomy: Yes Ear Surgery: No Endocrine Surgery: No Eye Surgery: No Genitourinary Surgery: Yes (bladder sling/mesh) Gynecologic Surgery: No Hysterectomy: Yes (partial) Oral Surgery: No Thoracic Surgery: No Social History Alcohol Use: No Tobacco Use: No Substance Use: No Allergies-Medications (Allergen,Severity, Reaction): Coded Allergies: No Known Allergies (Unverified , 06/17/17) Reported Meds & Prescriptions Reported Meds & Active Scripts Active Reported Calcium 600+D Plus Minerals (Calcium Carbonate-Vitamin D W/Minerals) 600-400 Mg- Unit Tab 1 Tab PO BID B12 (Cyanocobalamin) 1,000 Mcg Tab 1 Tab PO DAILY Lisinopril-Hctz 20-12.5 Mg Tab 1 Tab PO DAILY Zetia (Ezetimibe) 10 Mg Tab 10 Mg PO DAILY Omeprazole 20 Mg Tab 20 Mg PO DAILY Review of Systems Except as stated in HPI: all other systems reviewed are Neg Physical Exam Narrative GENERAL: Well-developed well-nourished no obvious distress SKIN: Focused skin assessment warm/dry. HEAD: Atraumatic. Normocephalic. EYES: Pupils equal and round. No scleral icterus. No injection or drainage. ENT: No nasal bleeding or discharge. Mucous membranes pink and moist. NECK: Trachea midline. No JVD. CARDIOVASCULAR: Regular rate and rhythm. No murmur appreciated. 2+ bilateral equal pulses in all 4 extremities. RESPIRATORY: No accessory muscle use. Clear to auscultation. Breath sounds equal bilaterally. GASTROINTESTINAL: Abdomen soft, non-tender, nondistended. Hepatic and splenic margins not palpable. No rebound no percussive tenderness, abdomen is benign. Normal active bowel sounds MUSCULOSKELETAL: No obvious deformities. No clubbing. No cyanosis. No edema. NEUROLOGICAL: Awake and alert. Cranial nerves II through XII grossly intact and nonfocal, 5 out of 5 strength in all 4 extremities PSYCHIATRIC: Appropriate mood and affect; insight and judgment normal. Data Data Last Documented VS Vital Signs Date Time Temp Pulse Resp B/P (MAP) Pulse Ox O2 Delivery O2 Flow Rate FiO2 10/03/17 15:42 97.4 82 23 134/62 (86) 97 Orders Orders Electrocardiogram (10/03/17 15:39) Complete Blood Count With Diff (10/03/17 15:39) Comprehensive Metabolic Panel (10/03/17 15:39) B-Type Natriuretic Peptide (10/03/17 15:39) Troponin I (10/03/17 15:39) Act Partial Throm Time (Ptt) (10/03/17 15:39) Prothrombin Time / Inr (Pt) (10/03/17 15:39) Chest, Single Ap (10/03/17 15:39) Ecg Monitoring (10/03/17 15:39) Iv Access Insert/Monitor (10/03/17 15:39) Oximetry (10/03/17 15:39) Sodium Chloride 0.9% Flush (Ns Flush) (10/03/17 15:45) Admit Order (Ed Use Only) (10/03/17 ) Place In Observation (10/03/17 ) Vital Signs (Adult) Q4H (10/03/17 19:01) Activity Oob With Assistance (10/03/17 19:01) Road Monkey / Telemetry .CONTINUOUS (10/03/17 19:01) Sodium Chloride 0.9% Flush (Ns Flush) (10/03/17 19:15) Sodium Chloride 0.9% Flush (Ns Flush) (10/03/17 21:00) Acetaminophen (Tylenol) (10/03/17 19:15) Basic Metabolic Panel (Bmp) (10/04/17 06:00) Complete Blood Count With Diff (10/04/17 06:00) Resp Oxygen Ascencion C Titrat 1-4 L (10/03/17 ) Pt Request For Service (10/03/17 19:01) Scd Bilateral/Knee High MICHAEL.BID (10/03/17 19:01) Naloxone Inj (Narcan Inj) (10/03/17 19:15) Magnesium Hydroxide Liq (Milk Of Magnesi (10/03/17 19:15) Sennosides (Senokot) (10/03/17 19:15) Bisacodyl Supp (Dulcolax Supp) (10/03/17 19:15) Lactulose Liq (Lactulose Liq) (10/03/17 19:15) Orthostatic Blood Pressure (10/03/17 19:01) Labs Laboratory Tests Test 10/03/17 15:58 White Blood Count 13.8 TH/MM3 Red Blood Count 4.84 MIL/MM3 Hemoglobin 14.6 GM/DL Hematocrit 42.6 % Mean Corpuscular Volume 88.0 FL Mean Corpuscular Hemoglobin 30.2 PG Mean Corpuscular Hemoglobin Concent 34.4 % Red Cell Distribution Width 13.9 % Platelet Count 277 TH/MM3 Mean Platelet Volume 8.0 FL Neutrophils (%) (Auto) 80.4 % Lymphocytes (%) (Auto) 13.8 % Monocytes (%) (Auto) 5.5 % Eosinophils (%) (Auto) 0.1 % Basophils (%) (Auto) 0.2 % Neutrophils # (Auto) 11.1 TH/MM3 Lymphocytes # (Auto) 1.9 TH/MM3 Monocytes # (Auto) 0.8 TH/MM3 Eosinophils # (Auto) 0.0 TH/MM3 Basophils # (Auto) 0.0 TH/MM3 CBC Comment DIFF FINAL Differential Comment Prothrombin Time 10.0 SEC Prothromb Time International Ratio 1.0 RATIO Activated Partial Thromboplast Time 19.4 SEC Blood Urea Nitrogen 15 MG/DL Creatinine 1.05 MG/DL Random Glucose 140 MG/DL Total Protein 6.7 GM/DL Albumin 3.7 GM/DL Calcium Level 8.9 MG/DL Alkaline Phosphatase 62 U/L Aspartate Amino Transf (AST/SGOT) 22 U/L Alanine Aminotransferase (ALT/SGPT) 22 U/L Total Bilirubin 0.8 MG/DL Sodium Level 135 MEQ/L Potassium Level 3.3 MEQ/L Chloride Level 94 MEQ/L Carbon Dioxide Level 30.0 MEQ/L Anion Gap 11 MEQ/L Estimat Glomerular Filtration Rate 50 ML/MIN Troponin I LESS THAN 0.02 NG/ML B-Type Natriuretic Peptide 23 PG/ML MDM Medical Decision Making Medical Screen Exam Complete: Yes Emergency Medical Condition: Yes Differential Diagnosis Syncope, electrolyte normality, dehydration, gastroparesis, acute abdomen highly unlikely, cardiogenic syncope, neurogenic syncope, vasogenic syncope. Narrative Course Patient room to the emergency department, initial workup with electrolytes CBC troponin EKG is fairly unremarkable. She does not have any injuries associated with her syncopal episodes today, has not had any emesis in the emergency department. He is reasonable to place her in observation status for syncope workup including cardiac monitoring. This was discussed with Dr. Marx who is agreeable peer Diagnosis Primary Impression: Syncope Admitting Information Admitting Physician Requests: Observation Condition: Stable Edward Leyva MD October 03, 2017 17:40
[2017-10-03] MEDS ORDERED: LISI-515 PO (19:06)
[2017-10-03] MEDS ORDERED: LISI20TA PO (19:06)
[2017-10-03] MEDS ORDERED: CALCTAB33 PO (19:06)
[2017-10-03] MEDS ORDERED: CYAN1TAB24 PO (19:06)
[2017-10-03 19:13] VITALS: BP 114/71; PULSE 78; RESP 16; O2SAT 98
[2017-10-03] MEDS ORDERED: LACTULOSE SYRUP 20 GM/30 ML CUP PO PRN (19:15)
[2017-10-03] MEDS ORDERED: SENNOSIDES 8.6 MG TAB PO PRN (19:15)
[2017-10-03] MEDS ORDERED: ACETAMINOPHEN 325 MG TAB PO PRN (19:15)
[2017-10-03] MEDS ORDERED: SODIUM CHLORIDE 0.9% FLUSH 10 ML FLUSH IV FLUSH PRN (19:15)
[2017-10-03] MEDS ORDERED: BISACODYL 10 MG SUPP RECTAL PRN (19:15)
[2017-10-03] MEDS ORDERED: NALOXONE HCL 0.4 MG/ML AMP IV PUSH PRN (19:15)
[2017-10-03] MEDS ORDERED: MAGNESIUM HYDROXIDE SUSP 30 ML CUP PO PRN (19:15)
--- NOTE | 2017-10-03 19:43 | HHI.HP ---
[facility] Service [facility] Primary Care Physician Jovan Sierra MD Admission Diagnosis Syncope Diagnoses: Chief Complaint: Past about 4 times. Travel History International Travel<30 Days: No Contact w/Intl Traveler <30 Da: No Traveled to Known Affected Are: No Review of Systems Except as stated in HPI: all other systems reviewed are Neg Past Family Social History Past Medical History Hypertension, GERD, arthritis Past Surgical History Cholecystectomy, bladder surgery, hysterectomy partial. Reported Medications Mag-Al Plus Liq (Cbpjlpbs-Gafaslsll-Kcbvlgjvfcx Liq) 200-200-20 Mg/5 Ml Susp 10 Ml PO QID 30 Days Take between meals or as directed. Shake well. Do not exceed 120 mL/24 hrs. Lisinopril 10 Mg Tab 10 Mg PO DAILY 30 Days Sodium Chloride 1 Gram Tab 2 Gm PO BID 30 Days Reported Zetia (Ezetimibe) 10 Mg Tab 10 Mg PO DAILY Omeprazole 20 Mg Tab 20 Mg PO DAILY Allergies: Coded Allergies: No Known Allergies (Unverified , 06/17/17) Social History Denies using tobacco, alcohol, illicit drugs. Physical Exam Vital Signs Vital Signs Date Time Temp Pulse Resp B/P (MAP) Pulse Ox O2 Delivery O2 Flow Rate FiO2 10/03/17 19:13 78 16 114/71 (85) 98 Room Air 10/03/17 15:42 97.4 82 23 134/62 (86) 97 Physical Exam GENERAL: This is a well-nourished, well-developed patient, in no apparent distress. SKIN: No rashes, ecchymoses or lesions. Warm and dry. HEAD: Atraumatic. Normocephalic. No temporal or scalp tenderness. EYES: Pupils equal round and reactive. No injection or drainage. ENT: Nose without bleeding, purulent drainage or septal hematoma. Airway patent. NECK: Trachea midline. No lymphadenopathy. Supple, nontender, no meningeal signs. CARDIOVASCULAR: Regular rate and rhythm without murmurs, gallops, or rubs. No JVD. RESPIRATORY: Clear to auscultation. Breath sounds equal bilaterally. No wheezes , rales, or rhonchi. GASTROINTESTINAL: Abdomen soft, non-tender, nondistended. No guarding. MUSCULOSKELETAL: Extremities without clubbing, cyanosis, or edema. NEUROLOGICAL: Awake and alert. Cranial nerves II through XII intact. No focal neurological deficits. Normal speech. Laboratory Laboratory Tests Test 10/03/17 15:58 White Blood Count 13.8 Red Blood Count 4.84 Hemoglobin 14.6 Hematocrit 42.6 Mean Corpuscular Volume 88.0 Mean Corpuscular Hemoglobin 30.2 Mean Corpuscular Hemoglobin Concent 34.4 Red Cell Distribution Width 13.9 Platelet Count 277 Mean Platelet Volume 8.0 Neutrophils (%) (Auto) 80.4 Lymphocytes (%) (Auto) 13.8 Monocytes (%) (Auto) 5.5 Eosinophils (%) (Auto) 0.1 Basophils (%) (Auto) 0.2 Neutrophils # (Auto) 11.1 Lymphocytes # (Auto) 1.9 Monocytes # (Auto) 0.8 Eosinophils # (Auto) 0.0 Basophils # (Auto) 0.0 CBC Comment DIFF FINAL Differential Comment Prothrombin Time 10.0 Prothromb Time International Ratio 1.0 Activated Partial Thromboplast Time 19.4 Blood Urea Nitrogen 15 Creatinine 1.05 Random Glucose 140 Total Protein 6.7 Albumin 3.7 Calcium Level 8.9 Alkaline Phosphatase 62 Aspartate Amino Transf (AST/SGOT) 22 Alanine Aminotransferase (ALT/SGPT) 22 Total Bilirubin 0.8 Sodium Level 135 Potassium Level 3.3 Chloride Level 94 Carbon Dioxide Level 30.0 Anion Gap 11 Estimat Glomerular Filtration Rate 50 Troponin I LESS THAN 0.02 B-Type Natriuretic Peptide 23 Result Diagram: 10/03/17 1558 10/03/17 1558 Imaging Last Impressions Chest X-Ray 10/03/17 1539 Signed Impressions: CONCLUSION: Mild basilar atelectasis. No effusion or pneumothorax. Caprini VTE Risk Assessment Caprini VTE Risk Assessment: Mod/High Risk (score >= 2) Caprini Risk Assessment Model Point Value = 1 Point Value = 2 Point Value = 3 Point Value = 5 Age 41-60 Minor surgery BMI > 25 kg/m2 Swollen legs Varicose veins or History of unexplained or recurrent spontaneous Oral contraceptives or hormone replacement Sepsis (< 1 month) Serious lung disease, including pneumonia (< 1 month) Abnormal pulmonary function Acute myocardial infarction Congestive heart failure (< 1 month) History of inflammatory bowel disease Medical patient at bed rest Age 61-74 Arthroscopic surgery Major open surgery (> 45 min) Laparoscopic surgery (> 45 min) Malignancy Confined to bed (> 72 hours) Immobilizing plaster cast Central venous access Age >= 75 History of VTE Family history of VTE Factor V Leiden Prothrombin [id number] Lupus anticoagulant Anticardiolipin antibodies Elevated serum homocysteine Heparin-induced thrombocytopenia Other congenital or acquired thrombophilia Stroke (< 1 month) Elective arthroplasty Hip, pelvis, or leg fracture Acute spinal cord injury (< 1 month) Prophylaxis Regimen Total Risk Factor Score Risk Level Prophylaxis Regimen 0-1 Low Early ambulation 2 Moderate Order ONE of the following: *Sequential Compression Device (SCD) *Heparin 5000 units SQ BID 3-4 Higher Order ONE of the following medications: *Heparin 5000 units SQ TID *Enoxaparin/Lovenox 40 mg SQ daily (WT < 150 kg, CrCl > 30 mL/min) *Enoxaparin/Lovenox 30 mg SQ daily (WT < 150 kg, CrCl > 10-29 mL/min) *Enoxaparin/Lovenox 30 mg SQ BID (WT < 150 kg, CrCl > 30 mL/min) AND/OR *Sequential Compression Device (SCD) 5 or more Highest Order ONE of the following medications: *Heparin 5000 units SQ TID (Preferred with Epidurals) *Enoxaparin/Lovenox 40 mg SQ daily (WT < 150 kg, CrCl > 30 mL/min) *Enoxaparin/Lovenox 30 mg SQ daily (WT < 150 kg, CrCl > 10-29 mL/min) *Enoxaparin/Lovenox 30 mg SQ BID (WT < 150 kg, CrCl > 30 mL/min) AND *Sequential Compression Device (SCD) Assessment and Plan Problem List: (1) Syncope ICD Code: R55 - Syncope and collapse (2) Hypertension ICD Code: I10 - Essential (primary) hypertension (3) Hyperlipidemia ICD Code: E78.5 - Hyperlipidemia, unspecified Eric Marx DO October 03, 2017 7:43 pm
[2017-10-03] MEDS ORDERED: LORazepam 2 MG/ML VIAL ONE (20:06)
[2017-10-03] MEDS ORDERED: LORazepam 2 MG/ML VIAL IV PUSH ONE (20:15)
[2017-10-03] MEDS ORDERED: SODIUM CHLOR 0.9% 1000 ML INJ 1,000 ML IV ONE (20:15)
--- NOTE | 2017-10-03 20:17 | HHI.HP ---
HPI Service [facility] Primary [facility] Physician Jovan Sierra MD Admission Diagnosis Syncope Diagnoses: (1) Syncope (2) Hypertension (3) Hyperlipidemia Chief Complaint: Syncope, possible seizure activities. Travel History International Travel<30 Days: No Contact w/Intl Traveler <30 Da: No Traveled to Known Affected Are: No History of Present Illness Ms. Nicholas is a pleasant 86-year-old female with a history of hypertension, hyperlipidemia, recently diagnosed gastroparesis who presents to the emergency department due to multiple episodes of syncope. Patient has nausea and vomiting today. She typically has abdominal discomfort and nausea and currently she is undergoing workup by Dr. Clinton. Today, over a short period of time, she felt hot followed by syncopal episodes. In the emergency department, she had similar episodes and she had whole body jerking movements as well as loss of control of bowel. She denies any dysuria, hematuria. Denies any persistent diarrhea but she had diarrhea a few days ago. No fever or chills. No cough, shortness of breath, chest pain. Review of Systems Except as stated in HPI: all other systems reviewed are Neg Past Family Social History Past Medical History Hypertension, GERD, arthritis Past Surgical History Cholecystectomy, bladder surgery, hysterectomy partial. Reported Medications Calcium 600+D Plus Minerals (Calcium Carbonate-Vitamin D W/Minerals) 600-400 Mg- Unit Tab 1 Tab PO BID B12 (Cyanocobalamin) 1,000 Mcg Tab 1 Tab PO DAILY Lisinopril-Hctz 20-12.5 Mg Tab 1 Tab PO DAILY Zetia (Ezetimibe) 10 Mg Tab 10 Mg PO DAILY Omeprazole 20 Mg Tab 20 Mg PO DAILY Allergies: Coded Allergies: No Known Allergies (Unverified , 06/17/17) Family History Grandmother had dementia. Social History Denies using tobacco, alcohol, illicit drugs. Physical Exam Vital Signs Vital Signs Date Time Temp Pulse Resp B/P (MAP) Pulse Ox O2 Delivery O2 Flow Rate FiO2 10/03/17 19:13 78 16 114/71 (85) 98 Room Air 10/03/17 15:42 97.4 82 23 134/62 (86) 97 Physical Exam GENERAL: This is a well-nourished, well-developed patient, in no apparent distress. SKIN: No rashes, ecchymoses or lesions. Warm and dry. HEAD: Atraumatic. Normocephalic. No temporal or scalp tenderness. EYES: Pupils equal round and reactive. No injection or drainage. ENT: Nose without bleeding, purulent drainage or septal hematoma. Airway patent. NECK: Trachea midline. No lymphadenopathy. Supple, nontender, no meningeal signs. CARDIOVASCULAR: Regular rate and rhythm without murmurs, gallops, or rubs. No JVD. RESPIRATORY: Clear to auscultation. Breath sounds equal bilaterally. No wheezes , rales, or rhonchi. GASTROINTESTINAL: Abdomen soft, non-tender, nondistended. No guarding. MUSCULOSKELETAL: Extremities without clubbing, cyanosis, or edema. NEUROLOGICAL: Awake and alert. Cranial nerves II through XII intact. No focal neurological deficits. Normal speech. During my interview in the ED, patient felt hot and subsequently her eyes rolled back and she was not responding for a few seconds. Laboratory Laboratory Tests Test 10/03/17 15:58 White Blood Count 13.8 Red Blood Count 4.84 Hemoglobin 14.6 Hematocrit 42.6 Mean Corpuscular Volume 88.0 Mean Corpuscular Hemoglobin 30.2 Mean Corpuscular Hemoglobin Concent 34.4 Red Cell Distribution Width 13.9 Platelet Count 277 Mean Platelet Volume 8.0 Neutrophils (%) (Auto) 80.4 Lymphocytes (%) (Auto) 13.8 Monocytes (%) (Auto) 5.5 Eosinophils (%) (Auto) 0.1 Basophils (%) (Auto) 0.2 Neutrophils # (Auto) 11.1 Lymphocytes # (Auto) 1.9 Monocytes # (Auto) 0.8 Eosinophils # (Auto) 0.0 Basophils # (Auto) 0.0 CBC Comment DIFF FINAL Differential Comment Prothrombin Time 10.0 Prothromb Time International Ratio 1.0 Activated Partial Thromboplast Time 19.4 Blood Urea Nitrogen 15 Creatinine 1.05 Random Glucose 140 Total Protein 6.7 Albumin 3.7 Calcium Level 8.9 Alkaline Phosphatase 62 Aspartate Amino Transf (AST/SGOT) 22 Alanine Aminotransferase (ALT/SGPT) 22 Total Bilirubin 0.8 Sodium Level 135 Potassium Level 3.3 Chloride Level 94 Carbon Dioxide Level 30.0 Anion Gap 11 Estimat Glomerular Filtration Rate 50 Troponin I LESS THAN 0.02 B-Type Natriuretic Peptide 23 Result Diagram: 10/03/17 1558 10/03/17 1558 Imaging Last Impressions Chest X-Ray 10/03/17 1539 Signed Impressions: CONCLUSION: Mild basilar atelectasis. No effusion or pneumothorax. Caprini VTE Risk Assessment Caprini VTE Risk Assessment: Mod/High Risk (score >= 2) Caprini Risk Assessment Model Point Value = 1 Point Value = 2 Point Value = 3 Point Value = 5 Age 41-60 Minor surgery BMI > 25 kg/m2 Swollen legs Varicose veins or History of unexplained or recurrent spontaneous Oral contraceptives or hormone replacement Sepsis (< 1 month) Serious lung disease, including pneumonia (< 1 month) Abnormal pulmonary function Acute myocardial infarction Congestive heart failure (< 1 month) History of inflammatory bowel disease Medical patient at bed rest Age 61-74 Arthroscopic surgery Major open surgery (> 45 min) Laparoscopic surgery (> 45 min) Malignancy Confined to bed (> 72 hours) Immobilizing plaster cast Central venous access Age >= 75 History of VTE Family history of VTE Factor V Leiden Prothrombin [id number] Lupus anticoagulant Anticardiolipin antibodies Elevated serum homocysteine Heparin-induced thrombocytopenia Other congenital or acquired thrombophilia Stroke (< 1 month) Elective arthroplasty Hip, pelvis, or leg fracture Acute spinal cord injury (< 1 month) Prophylaxis Regimen Total Risk Factor Score Risk Level Prophylaxis Regimen 0-1 Low Early ambulation 2 Moderate Order ONE of the following: *Sequential Compression Device (SCD) *Heparin 5000 units SQ BID 3-4 Higher Order ONE of the following medications: *Heparin 5000 units SQ TID *Enoxaparin/Lovenox 40 mg SQ daily (WT < 150 kg, CrCl > 30 mL/min) *Enoxaparin/Lovenox 30 mg SQ daily (WT < 150 kg, CrCl > 10-29 mL/min) *Enoxaparin/Lovenox 30 mg SQ BID (WT < 150 kg, CrCl > 30 mL/min) AND/OR *Sequential Compression Device (SCD) 5 or more Highest Order ONE of the following medications: *Heparin 5000 units SQ TID (Preferred with Epidurals) *Enoxaparin/Lovenox 40 mg SQ daily (WT < 150 kg, CrCl > 30 mL/min) *Enoxaparin/Lovenox 30 mg SQ daily (WT < 150 kg, CrCl > 10-29 mL/min) *Enoxaparin/Lovenox 30 mg SQ BID (WT < 150 kg, CrCl > 30 mL/min) AND *Sequential Compression Device (SCD) Assessment and Plan Problem List: (1) Seizure ICD Code: R56.9 - Unspecified convulsions (2) Syncope ICD Code: R55 - Syncope and collapse (3) Hypertension ICD Code: I10 - Essential (primary) hypertension (4) Hyperlipidemia ICD Code: E78.5 - Hyperlipidemia, unspecified Assessment and Plan Ms. Nicholas is a pleasant 86-year-old female with a history of hypertension, hyperlipidemia, recently diagnosed gastroparesis who presents to the emergency department due to multiple episodes of syncope and suspected seizure activity. Patient had 2 seizure-like activities in the emergency department. Probable seizure activities -Discussed with the on-call neurologist Dr. Marshall. Neurology consult placed. -Start patient on Keppra 500 mg IV twice daily. Seizure precautions. Lorazepam as needed. -MRI brain with and without contrast, MRA brain. Will also obtain EEG. Gastroparesis -Apparently recently diagnosed. Will consult breeding manager Dr. Clinton. -Patient may need Reglan for gastroparesis. Future nutritional method should be discussed as well. Hypertension Leukocytosis GERD -Hold off on antihypertensive medications today. Blood pressure is on the lower end. -Will provide NS bolus and continue NS @125cc/hour. -WBC count 13.8 K. We will check lactic acid level. No clear evidence of any infectious etiology. -Continue PPI. Mild hypokalemia -potassium 3.3. Will replace with IV potassium chloride. Will check magnesium level as well. Full code. SCDs. Consider pharmacological DVT prophylaxis if prolonged hospitalization (>24 hrs) is expected. Physician Certification 2 Midnight Certification Type: Admission for Inpatient Services Order for Inpatient Services The services are ordered in accordance with Medicare regulations or non- Medicare payer requirements, as applicable. In the case of services not specified as inpatient-only, they are appropriately provided as inpatient services in accordance with the 2-midnight benchmark. Estimated LOS (days): 2 days is the estimated time the patient will need to remain in the hospital, assuming treatment plan goals are met and no additional complications. Post-Hospital Plan: Not yet determined Eric Marx DO October 03, 2017 8:17 pm
[2017-10-03] MEDS: SODIUM CHLOR 0.9% 1000 ML INJ 1,000 ML IV SCH (20:22)
[2017-10-03 20:23] VITALS: BP 107/61; PULSE 72; RESP 16
[2017-10-03] MEDS ORDERED: LORazepam 2 MG/ML VIAL IV PUSH PRN (20:30)
[2017-10-03] MEDS: POTASSIUM CHLOR 20 MEQ PREMIX 100 ML IV SCH (20:44)
[2017-10-03 20:50] LABS: LACTIC ACID SEPSIS PROTOCOL 2.6 mmol/L (0.4-2.0)
[2017-10-03] MEDS: SODIUM CHLORIDE 0.9% FLUSH 10 ML FLUSH IV FLUSH SCH (21:00)
[2017-10-03 21:05] VITALS: BP 104/50; PULSE 76; RESP 18; TEMP 97.6; O2SAT 98
[2017-10-03] MEDS ORDERED: GADODIAMIDE PF 287 MG/ML 20 ML VIAL (for RAD MRI) IVCONTRAST ONE (21:55)
--- NOTE | 2017-10-03 22:04 | RADRPT ---
EXAM DATE: 10/03/2017 9:58 PM EDT AGE/SEX: 86 years / Female INDICATIONS: Seizures. CLINICAL DATA: This is the patient's initial encounter. Patient reports that signs and symptoms have been present for 1 day and indicates a pain score of 0/10. MEDICAL/SURGICAL HISTORY: Gastroparesis. Hypertension. Hypercholesterolemia. Cholecystectomy. Hysterectomy. Total knee replacement, left. COMPARISON: No prior [facility] exams available for comparison. TECHNIQUE: Multiplanar, multisequence examination of the brain was performed without and with 12CC ml Omniscan (gadodiamide) contrast as a single exam dose. FINDINGS: There is no intracranial mass or midline shift. No hydrocephalus. No recent infarction identified on diffusion-weighted images. Minimal scattered white matter ischemic changes within normal limits for a ge. No abnormal extra-axial fluid collections. CONCLUSION: 1. No acute findings. No recent infarct or abnormal enhancement. Minimal scattered white matter isch emic changes. Electronically signed by: Jaswant Sierra MD 10/03/2017 10:03 PM EDT
--- NOTE | 2017-10-03 22:05 | RADRPT ---
EXAM DATE: 10/03/2017 9:53 PM EDT AGE/SEX: 86 years / Female INDICATIONS: Seizures. CLINICAL DATA: This is the patient's initial encounter. Patient reports that signs and symptoms have been present for 1 day and indicates a pain score of 0/10. MEDICAL/SURGICAL HISTORY: Gastroparesis. Hypercholesterolemia. Hypertension. Cholecystectomy. Hysterectomy. Total knee replacement, left. COMPARISON: No prior [facility] exams available for comparison. TECHNIQUE: 3D [id number] MRA was performed. Source images, multiplanar STS MIP, and 3D volum e MIP reconstructions were reviewed. FINDINGS: There is excellent visualization of the major intracranial arteries out to the second-order branch ve ssels. There is no evidence for aneurysm, vessel truncation or stenosis, and no evidence for vascula r malformation. CONCLUSION: 1. No acute findings. Examination is within normal limits for age. Electronically signed by: Jaswant Sierra MD 10/03/2017 10:04 PM EDT
[2017-10-03 22:32] VITALS: BP 97/52; PULSE 70; RESP 17; TEMP 97.4; O2SAT 95
[2017-10-04] VITALS (8 sets, daily range): BP systolic 89–140; BP diastolic 44–66; PULSE 65–76; RESP 16–18; TEMP 97.4–98.5; O2SAT 95–97
[2017-10-04] MEDS: levETIRAcetam INJ 500 MG in SODIUM CHLORIDE 0.9% INJ 100 ML IV SCH ×3 (01:04→21:47)
[2017-10-04] MEDS: POTASSIUM CHLOR 20 MEQ PREMIX 100 ML IV SCH (02:45)
[2017-10-04] MEDS: SODIUM CHLOR 0.9% 1000 ML INJ 1,000 ML IV SCH ×3 (04:15→21:47)
[2017-10-04 06:10] LABS: AUTOMATED NEUTROPHIL # 15.1 TH/MM3 (1.8-7.7); BASOPHIL % 0.1 % (0.0-2.0); HEMOGLOBIN 11.9 GM/DL (11.6-15.3); LYMPH % 10.9 % (9.0-44.0); MEAN CELL VOLUME 86.5 FL (80.0-100.0); MEAN CORPUSCULAR HEMOGLOBIN 30.3 PG (27.0-34.0); MEAN CORPUSCULAR HGB CONC 35.1 % (32.0-36.0); MEAN PLATELET VOLUME 8.4 FL (7.0-11.0); MONO % 5.7 % (0.0-8.0); NEUT % 83.3 % (16.0-70.0); PLATELET COUNT 218 TH/MM3 (150-450); RED BLOOD COUNT 3.93 MIL/MM3 (4.00-5.30); RED CELL DISTRIBUTION WIDTH 13.2 % (11.6-17.2); WHITE BLOOD COUNT 18.1 TH/MM3 (4.0-11.0)
[2017-10-04 07:12] LABS: CALCIUM 8.1 MG/DL (8.5-10.1); CREATININE 1.24 MG/DL (0.50-1.00)
[2017-10-04] MEDS: PANTOPRAZOLE SOD 20 MG DELAYED RELEASE TAB PO SCH (08:28)
[2017-10-04] MEDS: SODIUM CHLORIDE 0.9% FLUSH 10 ML FLUSH IV FLUSH SCH ×2 (08:28→21:47)
[2017-10-04] MEDS: CYANOCOBALAMIN 1,000 MCG TAB PO SCH (08:29)
[2017-10-04] MEDS ORDERED: NON-FORMULARY DRUG (Cyanocobalamin (B12) 1 TAB) PO SCH (09:00)
[2017-10-04] MEDS ORDERED: NON-FORMULARY DRUG (Omeprazole 20 MG) PO SCH (09:00)
--- NOTE | 2017-10-04 09:07 | MB ---
cc: Boogie Arreguin MD,Jose Sierra,Eric Eastman MD, DO DATE: 10/04/2017 REASON FOR CONSULTATION: We were asked to see the patient at the request of Dr. Marx for evaluation of gastroparesis. HISTORY OF PRESENT ILLNESS: The patient is a pleasant 86-year-old white female who initially saw Dr. Clinton for dysphagia in 2011. At that time, upper endoscopy revealed a small hiatal hernia and Schatzki's ring which was stretched. Since that stretching in 2011, she has had problems, excessive belching. She feels gas buildup in her abdomen with epigastric pain and it caused her to belch. Sometimes she cannot belch. She had an upper endoscopy done 04/2017 for functional dyspepsia and this showed a moderate Schatzki's ring, a small gastric polyp was biopsied and was benign. She also had small 2 cm hernia. The duodenum was unremarkable. A gastric emptying scan was done last week and showed severe gastroparesis with mild response to Reglan. Our office called her to come in and be seen and she is supposed to have appointment today. Unfortunately yesterday, according to the records available that she had episode of syncope and seizure activity. This is associated with epigastric cramping and vomiting (no blood). The patient has read online about gastroparesis and eat several small meals. She also had recent episode of loose stool, but is better now. The patient denies any previous syncopal episodes or chest pain, shortness of breath, palpitations or headaches. No fever, chills, melena, hematochezia or rectal bleeding. No dysphagia, odynophagia, early satiety, or heartburn issues. PAST MEDICAL HISTORY: Gastroparesis, recently diagnosed. She has a Schatzki's ring, which stretched in the past in 2011, but not in 2017. She also has a history of hiatal hernia, gastric polyp. A moderate diverticulum in the duodenum, a possible Zenker's diverticulum (seen on upper GI, but not upper endoscopy). She also has GERD type symptoms, hypertension, colon polyps, last colonoscopy in 2011 and no polyps were noted. Dyslipidemia and arthritis. PAST SURGICAL HISTORY: Includes a right knee replacement and she has had gallbladder removed, hysterectomy, 3 bladder surgeries, upper endoscopy and colonoscopy, partial hysterectomy. FAMILY HISTORY: Brother with stomach cancer. No history of colon cancer or colon polyps. ALLERGIES: NO KNOWN DRUG ALLERGIES. SOCIAL HISTORY: She does not currently smoke or drink. MEDICATIONS: Outpatient: Omeprazole, Zetia, lisinopril, vitamin B12 and calcium. Inpatient: Vitamin B12, Protonix, levetiracetam, Tylenol, Narcan, Milk of Magnesia, Senokot, Dulcolax, as well as lactulose if needed. REVIEW OF SYSTEMS: No weight loss or fever or chills. CARDIOPULMONARY: No chest pain, palpitations, shortness of breath. GASTROINTESTINAL: Please see above. Otherwise unremarkable 12-point review of systems. PHYSICAL EXAMINATION: VITAL SIGNS: Blood pressure is 102/53, pulse of 72, respiratory rate 17, temperature is 97.8. GENERAL: She is an elderly, white female resting comfortably at this time. Appears in no acute GI distress. Family member is present also. HEENT: Pupils equal and reactive to light. No obvious scleral icterus. Oropharyngeal dental caries. No tongue deviation or candidal lesions. Hearing is intact. NECK: Supple without lymphadenopathy. LUNGS: Clear to percussion. HEART: Regular rate and rhythm. No gross rubs. ABDOMEN: Soft, nondistended, nontender. No organomegaly, masses, ascites. No hernias. EXTREMITIES: No cyanosis, clubbing or edema. NEUROLOGIC: Cranial nerves 2-12 grossly intact. I did not assess her gait. She appears alert and oriented x 3. EXTREMITIES: No cyanosis, clubbing or edema. SKIN: Warm and moist. LABORATORY DATA: Revealed a sodium 135, which is low, potassium 3.3 is low, BUN of 15, creatinine 1.05. SGOT 22, SGPT of 22, alkaline phosphatase of 62. Troponin less than 0.02. Albumin 3.7, total protein 6.7. Prothrombin time 10.0, INR 1.0, PTT at 19.4. Her white blood cell count was 13,800 on admission, now is 18,100. White blood cell count 14,600 on admission, now is 11.9. Her MCV of 88, platelet count of 277,000. IMAGING STUDIES: Revealed that she had an MRI of the brain with and without contras, revealed no acute findings. There is some minimal scattered white matter ischemic changes. An MRA of brain without contrast revealed no acute findings, either. Chest x-ray revealed mild basal atelectasis. Of note, a gastric emptying scan done 09/23/2017, revealed severe gastroparesis with mild response to Reglan. IMPRESSION: 1. Gastroparesis - I talked in detail with the patient and family what gastroparesis is. We talked about the pathophysiology of it. The common causes include diabetes, hypothyroidism, medications, idiopathic, viruses, etc. After a long discussion, they were under the impression that this may have caused her syncope and seizure activity, her abdominal pain, diarrhea, vomiting. I told her that I do not think this played a role in all her symptoms; however, it may play a role in some of her GI symptoms. We need to find some way to manage this gastroparesis and also try to find a cause. 2. Functional dyspepsia. See above. 3. Syncope and seizures - your work in this regard. RECOMMENDATIONS: 1. They have already read up on gastroparesis online and she started a gastroparesis diet. However, I suggest that we get a dietitian involved and talk more about the situation. 2. Please check TSH to make sure that hypothyroidism is not playing a role in situation. 3. Your work in regards to syncope and seizures. 4. We talked about medical treatment in regards to gastroparesis. Reglan has been used, but I would not use it long-term, especially with the neurologic side effects and her age. Options at this point include bethanechol, as well as erythromycin/azithromycin. 5. With regard to bethanechol, the usual dose of 12.5 mg 30 minutes before breakfast, lunch, dinner and bedtime. However, this has side effects, especially underlying respiratory problems, underlying heart disease. 6. Regarding erythromycin and azithromycin, this can affect the Q-T interval of the heart and there is a tachyphylaxis after about a month and frequently we have to stop the medication because it stops working (drug holiday ) 7. Best medication to be bethanechol, but I am going to hold off to start it until we get cleared from the neurologic/cardiac standpoint to use this medication. 8. The above was discussed in detail with the patient and the patient's family and they are agreeable. 9. Dr. Clinton to see the patient tomorrow and make further recommendations. Boogie Arreguin MD SPP/TL , 07:46 AM , 09:05 AM MTDD
--- NOTE | 2017-10-04 10:04 | HHI.PR ---
Subjective Remarks Patient states no headaches. No visual changes. No focalized weakness or numbness at this time. She is swallowing okay. She would like to try some soft diet. Objective Vitals Vital Signs Date Time Temp Pulse Resp B/P (MAP) Pulse Ox O2 Delivery O2 Flow Rate FiO2 10/04/17 08:00 98.5 75 16 109/53 (71) 96 10/04/17 03:08 97.8 73 17 93/49 (64) 95 102/53 (69) 89/44 (59) 10/03/17 22:32 97.4 70 17 97/52 (67) 95 10/03/17 21:05 97.6 76 18 104/50 (68) 98 10/03/17 20:44 10/03/17 20:23 72 16 107/61 (76) Room Air 10/03/17 19:13 78 16 114/71 (85) 98 Room Air 10/03/17 15:42 97.4 82 23 134/62 (86) 97 I/O 10/03/17 10/03/17 10/03/17 10/04/17 10/04/17 10/04/17 07:00 15:00 23:00 07:00 15:00 23:00 Intake Total 1425 ml Balance 1425 ml Intake Oral 120 ml IV Total 1305 ml # Voids 1 # Bowel Movements 1 Result Diagram: 10/04/17 0519 10/04/17 05 Objective Remarks GENERAL: This is a well-nourished, well-developed patient, in no apparent distress. CARDIOVASCULAR: Regular rate and rhythm RESPIRATORY: Clear to auscultation. Breath sounds equal bilaterally. No wheezes , rales, or rhonchi. GASTROINTESTINAL: Abdomen soft, non-tender, nondistended. Normal active bowel sounds MUSCULOSKELETAL: Extremities without clubbing, cyanosis, or edema. NEURO: Alert & Oriented x4 to person, place, time, situation. Moves all ext x4 A/P Problem List: (1) Seizure ICD Code: R56.9 - Unspecified convulsions Status: Acute (2) Syncope ICD Code: R55 - Syncope and collapse Status: Acute (3) Hypertension ICD Code: I10 - Essential (primary) hypertension Status: Chronic (4) Hyperlipidemia ICD Code: E78.5 - Hyperlipidemia, unspecified Status: Chronic Assessment and Plan Ms. Nicholas is a pleasant 86-year-old female with a history of hypertension, hyperlipidemia, recently diagnosed gastroparesis who presents to the emergency department due to multiple episodes of syncope and suspected seizure activity. Patient had 2 seizure-like activities in the emergency department. Suspect probable seizure activities - -Start patient on Keppra 500 mg IV twice daily. Seizure precautions. Lorazepam as needed. -MRI brain with and without contrast show no active changes, MRA brain currently pending. Will also obtain EEG. Gastroparesis -Apparently recently diagnosed. Will consult utility tender carding Dr. Clinton. Appreciate recommendations -Dietary consultation further education. GI has recommended bethanechol after neurology clears the patient for seizure workup. Hypertension, chronic essential -hold off on home antihypertensives due to some orthostatic low blood pressure GERD -PPI Mild hypokalemia -repleted Full code. SCDs. Lovenox Discharge Planning Home with home health care pending clinical course. Problem Qualifiers (1) Syncope: Qualified Codes: R55 - Syncope and collapse (2) Hypertension: Qualified Codes: I10 - Essential (primary) hypertension (3) Hyperlipidemia: Qualified Codes: E78.5 - Hyperlipidemia, unspecified Mimi Abreu MD October 04, 2017 10:04
[2017-10-04] MEDS ORDERED: ENOXAPARIN SODIUM 40 MG/0.4 ML SYRINGE SQ SCH (11:00)
[2017-10-04] MEDS: ENOXAPARIN SODIUM 30 MG/0.3 ML SYRINGE SQ SCH (12:14)
--- NOTE | 2017-10-04 14:09 | EKG ---
Date Performed: 10/03/2017 Time Performed: 17:45:06 PTAGE: 86 years EKG: Sinus rhythm ST DEVIATION AND MODERATE T-WAVE ABNORMALITY, CONSIDER ANTERIOR ISCHEMIA ABNORMAL ECG PREVIOUS TRACING : 06/17/2017 11.56 Since the previous tracing, no significant change noted DOCTOR: Robb Ag Interpretating Date/Time 10/04/2017 14:03:35
--- NOTE | 2017-10-04 14:15 | MG ---
cc: Lisa Katz MD EEG NUMBER [id number] REFERRING PHYSICIAN: Dr. Marx INDICATION: Room 1629 with photic stimulation. Awake, drowsy, asleep study. MRI, no acute findings. Admitted for syncope, some drooping afterwards and vomiting. History of hyperlipidemia, possible seizures in the past. On Keppra, B12 and Protonix. DESCRIPTION OF RECORD: The patient has some mild background slowing predominantly 6-7 Hz, 20-40 microvolts, symmetrically slow. EKG looks sinus. More artifact in the frontal eye paz documented. Attenuation as the patient falls asleep. No epileptiform features. Photic stimulation does show a posterior driving response. IMPRESSION: Mild slowing of background may be due to medicine effect and/or encephalopathy or sedation, but there is no evidence of any epileptic activity in this one recording. Clinical correlation. Lisa Katz MD DF/TL , 01:58 PM , 02:14 PM
--- NOTE | 2017-10-04 15:08 | MB ---
cc: Krishan Blanco MD, PhD DATE: 10/04/2017 REASON FOR CONSULTATION: Seizure. HISTORY OF PRESENT ILLNESS: The patient is a very nice, 86-year-old woman who never had seizures in the past. Yesterday, had an episode where she suddenly lost consciousness. Her eyes rolled back up into her head and had generalized jerking activity for about 30 seconds, after which she was somnolent. She had about 5 of these episodes in a row and 2 additional episodes when she came to the ER. Again, no prior history of seizures. PAST MEDICAL HISTORY: History of hyperlipidemia, hypertension, gastroparesis, cholecystectomy, bladder surgery, hysterectomy. MEDICINES AT HOME: 1. Zetia. 2. Omeprazole. 3. Lisinopril. 4. HCTZ. 5. B12. 6. Calcium. SOCIAL HISTORY: Denies alcohol use or drug abuse. FAMILY HISTORY: Noncontributory. PHYSICAL EXAMINATION: VITAL SIGNS: Blood pressure is 104/57, pulse is 69, respiratory rate is 16, temperature 97 degrees, heart cortical functions normal. NEUROLOGIC: Cranial nerves 2-12 are normal. Motor exam: Normal strength and tone of all groups. There is no drift. Reflexes are symmetric. IMAGING STUDIES: MRI of the brain: Normal for age. MRA brain is normal. EEG: Mild slowing in the theta frequency. No epileptic focus identified. LABORATORY DATA: The white count is 18,100, hemoglobin 11.9, hematocrit 34%, platelet count 218,000. PT 10, INR 1, aPTT 19.4. Sodium 136, potassium 4.5, chloride 98, BUN 21, creatinine 1.24, GFR 41, glucose 126, calcium is 8.1. TSH is 0.545. IMPRESSION AND PLAN: Probable generalized seizure by history. Her workup is negative including MRI of the brain. She states she has been having some decreased p.o. intake, dietary changes as well as lack of sleep, which may be contributory. However, because of the frequency of the episodes, would recommend starting Keppra 500 mg b.i.d. Krishan Blanco MD, PhD NEHA/SB , 02:35 PM , 03:08 PM
[2017-10-05 00:19] VITALS: PULSE 64
[2017-10-05 03:43] VITALS: BP 116/55; PULSE 67; RESP 17; TEMP 97.3; O2SAT 99
[2017-10-05] MEDS: SODIUM CHLOR 0.9% 1000 ML INJ 1,000 ML IV SCH ×2 (04:15→12:15)
[2017-10-05 07:20] VITALS: PULSE 66
[2017-10-05 08:00] VITALS: BP 132/60; PULSE 70; RESP 18; TEMP 97.7; O2SAT 99
[2017-10-05 08:08] LABS: AUTOMATED NEUTROPHIL # 5.6 TH/MM3 (1.8-7.7); BASOPHIL % 0.4 % (0.0-2.0); EOSINOPHIL # 0.2 TH/MM3 (0-0.4); EOSINOPHIL % 2.1 % (0.0-4.0); HEMATOCRIT 33.3 % (35.0-46.0); HEMOGLOBIN 11.5 GM/DL (11.6-15.3); LYMPHOCYTE # 1.4 TH/MM3 (1.0-4.8); MEAN CORPUSCULAR HEMOGLOBIN 30.3 PG (27.0-34.0); MEAN CORPUSCULAR HGB CONC 34.4 % (32.0-36.0); MEAN PLATELET VOLUME 7.9 FL (7.0-11.0); MONO % 7.3 % (0.0-8.0); MONOCYTE # 0.6 TH/MM3 (0-0.9); NEUT % 72.2 % (16.0-70.0); PLATELET COUNT 193 TH/MM3 (150-450); RED BLOOD COUNT 3.79 MIL/MM3 (4.00-5.30); RED CELL DISTRIBUTION WIDTH 13.3 % (11.6-17.2); WHITE BLOOD COUNT 7.7 TH/MM3 (4.0-11.0)
[2017-10-05 08:36] LABS: BICARBONATE 28.9 MEQ/L (21.0-32.0); CALCIUM 8.9 MG/DL (8.5-10.1); CREATININE 0.92 MG/DL (0.50-1.00)
[2017-10-05] MEDS: CYANOCOBALAMIN 1,000 MCG TAB PO SCH (09:00)
[2017-10-05] MEDS: PANTOPRAZOLE SOD 20 MG DELAYED RELEASE TAB PO SCH (10:05)
[2017-10-05] MEDS: levETIRAcetam INJ 500 MG in SODIUM CHLORIDE 0.9% INJ 100 ML IV SCH (10:06)
[2017-10-05] MEDS: SODIUM CHLORIDE 0.9% FLUSH 10 ML FLUSH IV FLUSH SCH (10:06)
--- NOTE | 2017-10-05 10:18 | HHI.GIFU ---
GI Follow-up Note Consult Follow-up Subjective: Patient recently had an abnormal GE scan showing gastroparesis. Typically c/o early satiety and poor appetite and not abd pain or vomiting. Does get nausea. She has irregular BMs recently took imodium and last night had a few flecks of blood with BM. TSH wnl. She has had some prior bladder surgery(sling?). Denies any cardiac hx. Objective: PHYSICAL EXAMINATION: Vitals signs stable No fever CHEST: Breathing nonlabored ABDOMEN: Soft, nondistended, nontender EXTREMITIES: No clubbing, cyanosis, or edema. SKIN: warm and dry FLY RAISER LOCKSTITCH: alert and oriented times three. Available Data (labs, X- Rays, Procedues) : ASSESSMENT/PLAN: 1. Gastroparesis-discussed gastroparesis diet in detail and also treatment options. Would avoid reglan. Can consider Bethanechol but may be an issue with epilepsy so will ask neurologist for input. Can also try low dose erythromycin or azithromycin if QTc interval ok. I reviewed the mechanism of action of each drug and potential risks/ side effects.Will have her f/u my office next week. 2. Seizures It was a pleasure seeing Jolynn Nicholas Thank you for this consult. Entered by: Jose Aguilar MD October 05, 2017 10:18
[2017-10-05] MEDS: ENOXAPARIN SODIUM 30 MG/0.3 ML SYRINGE SQ SCH (10:33)
--- NOTE | 2017-10-05 11:35 | HHI.FF ---
Face to Face Verification Diagnosis: (1) Seizure Home Health Nursing Order: Medication education-adverse effect I have seen patient Jolynn Nicholas on 10/05/17. My clinical findings support the need for the requested home health care services because: High risk of falls I certify that my clinical findings support that this patient is homebound because: Unsafe to leave home unassisted Mimi Abreu MD October 05, 2017 11:35
[2017-10-05] MEDS ORDERED: WALKER WHEELS/F1 MIS (11:36)
[2017-10-05 12:00] VITALS: BP 130/60; PULSE 72; RESP 16; TEMP 97.2; O2SAT 96
--- NOTE | 2017-10-05 12:07 | HHI.PR ---
Subjective Remarks Reports no active seizures overnight. No other complaints other than feeling tired. Would like to go home. Did meet with dietitian yesterday concerning foods to eat for her history of gastroparesis. Objective Vitals Vital Signs Date Time Temp Pulse Resp B/P (MAP) Pulse Ox O2 Delivery O2 Flow Rate FiO2 10/05/17 10:15 Nasal Cannula 10/05/17 08:00 97.7 70 18 132/60 (84) 99 10/05/17 07:20 66 10/05/17 03:43 97.3 67 17 116/55 (75) 99 10/05/17 00:19 64 10/04/17 23:04 97.7 65 17 104/51 (68) 97 10/04/17 20:00 98.4 76 18 140/60 (86) 97 123/58 (79) 121/66 (84) 10/04/17 20:00 70 10/04/17 16:05 67 10/04/17 16:00 97.4 68 16 112/52 (72) 96 I/O 10/04/17 10/04/17 10/04/17 10/05/17 10/05/17 10/05/17 07:00 15:00 23:00 07:00 15:00 23:00 Intake Total 1425 ml 390 ml 660 ml 480 ml Balance 1425 ml 390 ml 660 ml 480 ml Intake Oral 120 ml 660 ml 480 ml IV Total 1305 ml 390 ml # Voids 1 3 3 # Bowel Movements 1 0 Result Diagram: 10/05/17 0720 10/05/17 0720 Objective Remarks GENERAL: This is a well-nourished, well-developed patient, in no apparent distress. CARDIOVASCULAR: Regular rate and rhythm RESPIRATORY: Clear to auscultation. Breath sounds equal bilaterally. No wheezes , rales, or rhonchi. GASTROINTESTINAL: Abdomen soft, non-tender, nondistended. Normal active bowel sounds MUSCULOSKELETAL: Extremities without clubbing, cyanosis, or edema. NEURO: Alert & Oriented x4 to person, place, time, situation. Moves all ext x4 A/P Problem List: (1) Seizure ICD Code: R56.9 - Unspecified convulsions Status: Acute (2) Syncope ICD Code: R55 - Syncope and collapse Status: Acute (3) Hypertension ICD Code: I10 - Essential (primary) hypertension Status: Chronic (4) Hyperlipidemia ICD Code: E78.5 - Hyperlipidemia, unspecified Status: Chronic Assessment and Plan Ms. Nicholas is a pleasant 86-year-old female with a history of hypertension, hyperlipidemia, recently diagnosed gastroparesis who presents to the emergency department due to multiple episodes of syncope and suspected seizure activity. Patient had 2 seizure-like activities in the emergency department. Suspect probable seizure activities -Start patient on Keppra 500 mg IV twice daily and transition to p.o. Seizure precautions. Lorazepam as needed. -MRI brain with and without contrast show no active changes, MRA brain negative. EEG showed most active seizures. Gastroparesis -Apparently recently diagnosed with no significant response to Reglan. Will consult mysql developer Dr. Clinton. Appreciate recommendations -Dietary consultation further education. GI has recommended bethanechol after neurology clears the patient to take the medication. Another alternative would be to use erythromycin after repeating EKG. patient will follow up with Dr. Clinton upon discharge Hypertension, chronic essential -currently blood pressure adequately controlled off antihypertensives. GERD -PPI Mild hypokalemia -repleted Full code. SCDs. Lovenox Discharge Planning Home with home health care pending clinical course. PT is also recommended a front wheel walker Problem Qualifiers (1) Syncope: Qualified Codes: R55 - Syncope and collapse (2) Hypertension: Qualified Codes: I10 - Essential (primary) hypertension (3) Hyperlipidemia: Qualified Codes: E78.5 - Hyperlipidemia, unspecified Mimi Abreu MD October 05, 2017 12:07
[2017-10-05] MEDS ORDERED: ERYT250 PO (12:11)
[2017-10-05] MEDS ORDERED: LEVE500 PO (12:11)
--- NOTE | 2017-10-05 12:15 | HHI.DS ---
Discharge Summary Admission Date October 03, 2017 at 20:14 Admitting Diagnosis Syncope (1) Seizure ICD Code: R56.9 - Unspecified convulsions Diagnosis: Principal Status: Acute (2) Hypertension ICD Code: I10 - Essential (primary) hypertension Status: Chronic (3) Hyperlipidemia ICD Code: E78.5 - Hyperlipidemia, unspecified Diagnosis: Secondary Status: Chronic Procedures none Brief History - From Admission Ms. Nicholas is a pleasant 86-year-old female with a history of hypertension, hyperlipidemia, recently diagnosed gastroparesis who presents to the emergency department due to multiple episodes of syncope. Patient has nausea and vomiting today. She typically has abdominal discomfort and nausea and currently she is undergoing workup by Dr. Clinton. Today, over a short period of time, she felt hot followed by syncopal episodes. In the emergency department, she had similar episodes and she had whole body jerking movements as well as loss of control of bowel. She denies any dysuria, hematuria. Denies any persistent diarrhea but she had diarrhea a few days ago. No fever or chills. No cough, shortness of breath, chest pain. CBC/BMP: 10/05/17 0720 10/05/17 0720 Significant Findings Laboratory Tests Test 10/03/17 15:58 10/03/17 20:15 10/04/17 00:17 10/04/17 05:19 White Blood Count 13.8 TH/MM3 (4.0-11.0) 18.1 TH/MM3 (4.0-11.0) Neutrophils (%) (Auto) 80.4 % (16.0-70.0) 83.3 % (16.0-70.0) Neutrophils # (Auto) 11.1 TH/MM3 (1.8-7.7) 15.1 TH/MM3 (1.8-7.7) Activated Partial Thromboplast Time 19.4 SEC (24.3-30.1) Creatinine 1.05 MG/DL (0.50-1.00) 1.24 MG/DL (0.50-1.00) Random Glucose 140 MG/DL (74-106) 126 MG/DL (74-106) Sodium Level 135 MEQ/L (136-145) Potassium Level 3.3 MEQ/L (3.5-5.1) Chloride Level 94 MEQ/L (98-107) Estimat Glomerular Filtration Rate 50 ML/MIN (>89) 41 ML/MIN (>89) Troponin I LESS THAN 0.02 NG/ML Lactic Acid Level 2.6 mmol/L (0.4-2.0) Red Blood Count 3.93 MIL/MM3 (4.00-5.30) Hematocrit 34.0 % (35.0-46.0) Monocytes # (Auto) 1.0 TH/MM3 (0-0.9) Blood Urea Nitrogen 21 MG/DL (7-18) Calcium Level 8.1 MG/DL (8.5-10.1) Test 10/05/17 07:20 Red Blood Count 3.79 MIL/MM3 (4.00-5.30) Hemoglobin 11.5 GM/DL (11.6-15.3) Hematocrit 33.3 % (35.0-46.0) Neutrophils (%) (Auto) 72.2 % (16.0-70.0) Blood Urea Nitrogen 19 MG/DL (7-18) Estimat Glomerular Filtration Rate 58 ML/MIN (>89) Imaging Last Impressions Chest X-Ray 10/03/17 1539 Signed Impressions: CONCLUSION: Mild basilar atelectasis. No effusion or pneumothorax. Head Magnetic Resonance Angiography 10/03/17 0000 Signed Impressions: CONCLUSION: 1. No acute findings. Examination is within normal limits for age. Brain MRI 10/03/17 0000 Signed Impressions: CONCLUSION: 1. No acute findings. No recent infarct or abnormal enhancement. Minimal scatt ered white matter ischemic changes. PE at Discharge GENERAL: This is a well-nourished, well-developed patient, in no apparent distress. CARDIOVASCULAR: Regular rate and rhythm RESPIRATORY: Clear to auscultation. Breath sounds equal bilaterally. No wheezes , rales, or rhonchi. GASTROINTESTINAL: Abdomen soft, non-tender, nondistended. Normal active bowel sounds MUSCULOSKELETAL: Extremities without clubbing, cyanosis, or edema. NEURO: Alert & Oriented x4 to person, place, time, situation. Moves all ext x4 Hospital Course 86-year-old white female was admitted for suspected seizure activity and had further workup including EEG MRI/MRA of the brain which did not show any significant findings. She was placed on IV Keppra 500 mg twice daily and seen by neurologist who recommended continue anticonvulsants and no driving for the next 3-6 months. She also has a history of recently diagnosed gastroparesis which she has been seen GI Dr. Clinton for. Outpatient gastrointestinal tests showed no significant response to Reglan. Dr. Clinton recommend either bethanechol if okay with neurology although concerns with history of seizures while on this medication. At this time awaiting EKG to be performed prior to starting erythromycin with outpatient follow-up with GI for further recommendations on treatment of her gastroparesis. Dietitian consultation was also done during this consultation for her gastroparesis. At this time, patient has gained maximum benefit from hospitalization is ready to be discharged to home with outpatient follow-up. Pt Condition on Discharge: Good Discharge Disposition: Disch w/ Home Health Serv Discharge Instructions DIET: Follow Instructions for: Heart Healthy Diet Activities you can perform: See Additionl Instruction Activities to Avoid: Driving Other Activity Instructions: Driving for 3-6 months Follow up Referrals: Gastroenterology with Jose Clinton MD Neurology - 3 Weeks PCP Follow-up - 1 Week New Medications: Levetiracetam (Keppra) 500 Mg Tab 500 MG PO BID for Control Seizures, #60 TAB 0 Refills Walker with Front Wheels (Walker with Front Wheels) 1 Mis Mis EA .XX DIRECTED, #[address] (Otilio-Tab DR) 250 Mg Tabdr 250 MG PO TIDAC for gastroparesis, #90 TAB Continued Medications: Calcium Carbonate-Vitamin D W/Minerals (Calcium 600+D Plus Minerals) 600-400 Mg- Unit Tab 1 TAB PO BID for Nutritional Supplement, TAB 0 Refills Cyanocobalamin (B12) 1,000 Mcg Tab 1 TAB PO DAILY Ezetimibe (Zetia) 10 Mg Tab 10 MG PO DAILY, #30 TAB 0 Refills Lisinopril-Hctz (Lisinopril-Hctz) 20-12.5 Mg Tab 1 TAB PO DAILY for Blood Pressure Management, #30 TAB 0 Refills Omeprazole (Omeprazole) 20 Mg Tab 20 MG PO DAILY, #30 TAB 0 Refills Mimi Abreu MD October 05, 2017 12:15
--- NOTE | 2017-10-05 13:48 | EKG ---
Date Performed: 10/05/2017 Time Performed: 11:51:36 PTAGE: 86 years EKG: Sinus rhythm RIGHT VENTRICULAR HYPERTROPHY AND ST-T CHANGE ABNORMAL ECG PREVIOUS TRACING : 10/03/2017 17.45 DOCTOR: Dinesh Olivas Interpretating Date/Time 10/05/2017 13:48:10
--- NOTE | 2017-10-05 13:54 | HHI.FF ---
Face to Face Verification Diagnosis: (1) Seizure Physical Therapy Order: Evaluate and Treat Home Health Nursing Order: Medication education-adverse effect I have seen patient Jolynn Nicholas on 10/05/17. My clinical findings support the need for the requested home health care services because: Deconditioned w/ increased weakness I certify that my clinical findings support that this patient is homebound because: Unsafe to leave home unassisted Mimi Abreu MD October 05, 2017 13:54
[2017-10-05] MEDS ORDERED: ERYTHROMYCIN EC 250 MG TABEC PO SCH (17:00)
== END 2017-10-05 15:59 | disposition home health service (06) | DRG 101 ==
LOC: NEPC 15:31 → NEDA 19:05 → OBSVTOIN 20:14 → N06B 20:47
PROVIDERS: ADMIT Hospitalist; ATTEND Hospitalist
DX: R56.9 Unspecified convulsions (principal); K31.84 Gastroparesis; I10 Essential (primary) hypertension; R55 Syncope and collapse; E78.5 Hyperlipidemia, unspecified; K21.9 Gastro-esophageal reflux disease without esophagitis; M19.90 Unspecified osteoarthritis, unspecified site; E87.6 Hypokalemia; K30 Functional dyspepsia; Z96.651 Presence of right artificial knee joint
CPT/HCPCS: 70544; 70553; 71045; 80048; 80053; 83605; 83735; 83880; 84443; 84484; 85025; 85610; 85730; 93005; 95819; A9579; J1650; J1953; J2060; J3480; J7030